=== PATIENT | male | born 1950 | race Caucasian/White ===

== ENCOUNTER 2019-11-27 17:56 | Inpatient (IN) ==
[2019-11-27 20:25] LABS: Adenovirus Not Detected (Not Detect); Bordetella Pertussis Not Detected (Not Detect); Chlamydophila pneumoniae Not Detected (Not Detect); Coronavirus 229E Not Detected (Not Detect); Coronavirus HKU1 Not Detected (Not Detect); Coronavirus NL63 Not Detected (Not Detect); Coronavirus OC43 Not Detected (Not Detect); Human Metapneumovirus Not Detected (Not Detect); Human Rhinovirus/Enterovirus Not Detected (Not Detect); Influenza A Subtype 2009 H1 Not Detected (Not Detect); Influenza B Not Detected (Not Detect); Mycoplasma pneumoniae Not Detected (Not Detect); Parainfluenza Virus 1 Not Detected (Not Detect); Parainfluenza Virus 2 Not Detected (Not Detect); Parainfluenza Virus 3 Not Detected (Not Detect); Parainfluenza Virus 4 Not Detected (Not Detect); Respiratory Syncytial Virus Not Detected (Not Detect); SARS-CoV-2 Not Detected (Not Detect)
[2019-11-27] MEDS ORDERED: Ondansetron 4 MG/2 ML VIAL IVP PRN (21:44)
[2019-11-27] MEDS ORDERED: Naloxone 0.4 MG/ML INJ IVP PRN (21:44)
[2019-11-27 22:43] LABS: Basophils % 0.2 %; Lymphocytes % 8.7 %; Mean Platelet Volume 9.4 fL (9.4-12.4)
[2019-11-27 22:44] LABS: Basophils # 0.1 K/mcL (0.0-0.2); Hematocrit 33.8 % (37.5-50.1); Hemoglobin 10.5 g/dL (12.9-16.9); Immature Granulocytes % 0.9 % (0-4); Lymphocytes # 2.3 K/mcL (0.6-4.6); Mean Corpuscular HGB Conc 31.1 g/dL (31.6-35.5); Mean Corpuscular Hemoglobin 32.6 pg (28.0-33.3); Monocytes # 1.4 K/mcL (0.0-1.3); Monocytes % 5.4 %; Platelet Count 281 K/mcL (140-400); Red Blood Count 3.22 M/mcL (4.19-5.50); Red Cell Distribution Width 16.3 % (11.5-14.5); Segmented Neutrophils % 84.8 %; White Blood Count 26.3 K/mcL (4.3-11.1)
[2019-11-27 22:52] LABS: Neutrophils # 22.3 K/mcL (1.6-8.9)
[2019-11-27] MEDS ORDERED: Vancomycin 1,250 MG/262.5 ML IV.SOLN IVPB ONE (23:00)
[2019-11-27] MEDS: 0.9 % Sodium Chloride 1,000 ML IVC SCH (23:02)
[2019-11-27 23:15] LABS: Anisocytosis 1+ (Not Present); Platelet Estimate Normal (Normal); Toxic Granulation Present (Not Present)
[2019-11-27] MEDS ORDERED: Vancomycin 1 EACH in 0.9 % Sodium Chloride 250 ML IVPB PRN (23:45)
[2019-11-28] MEDS ORDERED: Piperacillin/Tazobactam 3.375 GM in 0.9 % Sodium Chloride Mini Bag 100 ML IVPB SCH
[2019-11-28] MEDS ORDERED: *HR* OxyCODONE/APAP 5/325 TABLET PO PRN (03:33)
[2019-11-28] MEDS ORDERED: *HR* OxyCODONE/APAP 10/325 TABLET PO PRN (03:34)
[2019-11-28] MEDS: Pantoprazole 40 MG VIAL IVP SCH ×2 (05:13→17:29)
[2019-11-28 05:50] LABS: Eosinophils % 0.1 %; Lymphocytes % 7.5 %; Red Cell Distribution Width 16.4 % (11.5-14.5)
[2019-11-28 05:51] LABS: Basophils # 0.1 K/mcL (0.0-0.2); Basophils % 0.2 %; Hematocrit 29.2 % (37.5-50.1); Hemoglobin 9.2 g/dL (12.9-16.9); Immature Granulocytes % 0.8 % (0-4); Lymphocytes # 1.9 K/mcL (0.6-4.6); Mean Corpuscular HGB Conc 31.5 g/dL (31.6-35.5); Mean Corpuscular Hemoglobin 33.1 pg (28.0-33.3); Mean Platelet Volume 9.4 fL (9.4-12.4); Monocytes # 1.6 K/mcL (0.0-1.3); Monocytes % 6.1 %; Platelet Count 232 K/mcL (140-400); Red Blood Count 2.78 M/mcL (4.19-5.50); Segmented Neutrophils % 85.3 %; White Blood Count 25.6 K/mcL (4.3-11.1)
[2019-11-28 05:53] LABS: INR 1.1; Prothrombin Time 12.3 Seconds (9.4-12.1)
[2019-11-28 05:58] LABS: Neutrophils # 21.8 K/mcL (1.6-8.9)
[2019-11-28 06:14] LABS: Albumin/Globulin Ratio 0.9 (1.1-2.2); Bilirubin,Total 0.4 mg/dL (0.3-1.0); Calcium 9.3 mg/dL (8.6-10.3); Globulin 3.4 g/dL (2.4-3.5); Magnesium 2.2 mg/dL (1.6-2.6); Potassium 4.9 mEq/L (3.5-5.1); Total Protein 6.4 g/dL (6.4-8.9); Troponin I 0.07 ng/mL (< 0.04)
[2019-11-28 06:25] LABS: Platelet Estimate Normal (Normal)
[2019-11-28] MEDS: 0.9 % Sodium Chloride 1,000 ML IVC SCH (08:12)
[2019-11-28] MEDS: Aspirin 81 MG TAB.CHEW GTUBE SCH (08:12)
[2019-11-28] MEDS ORDERED: *HR* Propofol 200 MG/20 ML VIAL IVP ONE (11:34)
[2019-11-28] MEDS ORDERED: Lidocaine -MPF 2% 2 ML VIAL ONE (11:35)
[2019-11-28] MEDS: Piperacillin/Tazobactam 3.375 GM in 0.9 % Sodium Chloride Mini Bag 100 ML IVPB SCH (14:05)
[2019-11-28 17:34] LABS: Basophils % 0.2 %; Hemoglobin 8.6 g/dL (12.9-16.9); Immature Granulocytes % 0.7 % (0-4); Lymphocytes # 1.4 K/mcL (0.6-4.6); Mean Corpuscular HGB Conc 30.7 g/dL (31.6-35.5); Mean Corpuscular Hemoglobin 32.1 pg (28.0-33.3); Mean Corpuscular Volume 104.5 fL (83.0-100.0); Mean Platelet Volume 9.6 fL (9.4-12.4); Monocytes # 1.3 K/mcL (0.0-1.3); Monocytes % 5.2 %; Neutrophils # 21.1 K/mcL (1.6-8.9); Platelet Count 213 K/mcL (140-400); Red Blood Count 2.68 M/mcL (4.19-5.50); Red Cell Distribution Width 16.1 % (11.5-14.5); Segmented Neutrophils % 87.9 %
[2019-11-28 17:40] LABS: Basophils # 0.1 K/mcL (0.0-0.2)
[2019-11-29] MEDS: Piperacillin/Tazobactam 3.375 GM in 0.9 % Sodium Chloride Mini Bag 100 ML IVPB SCH (00:11)
[2019-11-29] MEDS: Pantoprazole 40 MG VIAL IVP SCH ×2 (05:23→20:42)
[2019-11-29 05:51] LABS: Basophils % 0.2 %; Mean Platelet Volume 9.6 fL (9.4-12.4)
[2019-11-29 05:52] LABS: Basophils # 0.1 K/mcL (0.0-0.2); Hematocrit 29.8 % (37.5-50.1); Hemoglobin 9.2 g/dL (12.9-16.9); Immature Granulocytes % 0.9 % (0-4); Lymphocytes # 1.5 K/mcL (0.6-4.6); Lymphocytes % 3.8 %; Mean Corpuscular HGB Conc 30.9 g/dL (31.6-35.5); Mean Corpuscular Hemoglobin 32.9 pg (28.0-33.3); Mean Corpuscular Volume 106.4 fL (83.0-100.0); Monocytes # 1.8 K/mcL (0.0-1.3); Monocytes % 4.5 %; Neutrophils # 35.6 K/mcL (1.6-8.9); Platelet Count 281 K/mcL (140-400); Red Cell Distribution Width 16.5 % (11.5-14.5); Segmented Neutrophils % 90.6 %
[2019-11-29 06:02] LABS: White Blood Count 39.3 K/mcL (4.3-11.1)
[2019-11-29 06:04] LABS: Potassium 4.5 mEq/L (3.5-5.1)
[2019-11-29 06:05] LABS: % Iron Saturation 10 % (20-55); Iron 19 mcg/dL (65-175); Transferrin 130 mg/dL (203-362)
[2019-11-29 06:12] LABS: Macrocytosis Present (Not Present); Platelet Estimate Normal (Normal)
[2019-11-29 06:24] LABS: Ferritin > 1500 ng/mL (20-250)
[2019-11-29 06:32] LABS: Folate > 22.3 ng/mL (3.0-16.0); Vitamin B12 1183 pg/mL (250-1100)
[2019-11-29] MEDS: Aspirin 81 MG TAB.CHEW GTUBE SCH (08:00)
[2019-11-29] MEDS ORDERED: polyethylene glycoL 3350 17 GM POWD.PACK GTUBE PRN (08:08)
[2019-11-29] MEDS: Sennosides/Docusate Sodium TABLET GTUBE SCH (09:55)
[2019-11-29] MEDS: Valproic Acid Oral Soln 250 MG/5 ML UDC GTUBE SCH ×3 (09:55→23:57)
[2019-11-29] MEDS: Melatonin 3 MG TABLET GTUBE SCH (09:55)
[2019-11-29 11:06] LABS: Albumin 2.7 g/dL (3.5-5.7); Calcium 8.8 mg/dL (8.6-10.3); Phosphorous 3.8 mg/dL (2.7-4.5); Potassium 4.1 mEq/L (3.5-5.1)
[2019-11-29] MEDS ORDERED: 0.9 % Sodium Chloride 250 ML IVC PRN (11:07)
[2019-11-29] MEDS ORDERED: *HR* Heparin 10,000 UNIT/10 ML VIAL IV PRN (11:07)
[2019-11-29] MEDS ORDERED: 0.9 % Sodium Chloride 1,000 ML PRIME SCH (11:15)
[2019-11-29 11:37] LABS: Bacteria,Urine Few per hpf (None-Few); Bilirubin,Urine Negative (Negative); Blood,Urine Moderate (Negative); Budding Yeast,Urine Few per hpf (None Seen); Clarity,Urine Turbid (Clear); Color,Urine Yellow (Yellow); Glucose,Urine (UA) Normal (Normal); Ketones,Urine Negative (Negative); Leukocyte Esterase,Urine Large (Negative); Mucus,Urine Few per lpf (None-Few); Nitrite,Urine Negative (Negative); PH,Urine 6.5 pH Units (5.0-8.0); Protein,Urine 200 mg/dL (Neg-Trace); RBC,Urine 15-30 per hpf (0-3); Specific Gravity,Urine 1.016 (1.010-1.025); Urobilinogen,Urine Normal (Normal); WBC,Urine TNTC per hpf (0-3)
[2019-11-29] MEDS ORDERED: Colistin (Colistimethate) 300 MG in 0.9 % Sodium Chloride 50 ML IVPB ONE (13:03)
[2019-11-29] MEDS ORDERED: Ferumoxytol 510 MG in 0.9 % Sodium Chloride 100 ML IVPB ONE (14:31)
[2019-11-29 18:25] LABS: Hepatitis B Surface Antibody < 3.10 mIU/mL
[2019-11-29 18:36] LABS: Hepatitis B Surface Antigen Nonreactive (Nonreactive)
[2019-11-30] MEDS: Pantoprazole 40 MG VIAL IVP SCH ×2 (05:01→17:08)
[2019-11-30 06:35] LABS: Basophils # 0.1 K/mcL (0.0-0.2); Basophils % 0.2 %; Eosinophils % 0.1 %; Hematocrit 25.1 % (37.5-50.1); Hemoglobin 7.7 g/dL (12.9-16.9); Immature Granulocytes % 0.7 % (0-4); Lymphocytes % 9.3 %; Mean Corpuscular HGB Conc 30.7 g/dL (31.6-35.5); Mean Corpuscular Hemoglobin 32.1 pg (28.0-33.3); Mean Corpuscular Volume 104.6 fL (83.0-100.0); Mean Platelet Volume 9.2 fL (9.4-12.4); Monocytes # 1.4 K/mcL (0.0-1.3); Monocytes % 6.2 %; Neutrophils # 18.3 K/mcL (1.6-8.9); Platelet Count 208 K/mcL (140-400); Red Cell Distribution Width 16.5 % (11.5-14.5); Segmented Neutrophils % 83.5 %; White Blood Count 21.9 K/mcL (4.3-11.1)
[2019-11-30] MEDS: Melatonin 3 MG TABLET GTUBE SCH (08:45)
[2019-11-30] MEDS: Valproic Acid Oral Soln 250 MG/5 ML UDC GTUBE SCH ×3 (08:45→23:57)
[2019-11-30] MEDS: Sennosides/Docusate Sodium TABLET GTUBE SCH (08:45)
[2019-11-30] MEDS: Aspirin 81 MG TAB.CHEW GTUBE SCH (08:45)
[2019-11-30] MEDS ORDERED: Colistin (Colistimethate) 150 MG VIAL IVPB SCH (09:00)
[2019-11-30] MEDS: Colistin (Colistimethate) 130 MG in 0.9 % Sodium Chloride 50 ML IVPB SCH (12:55)
[2019-11-30] MEDS: ALPRAZolam 0.5 MG TABLET GTUBE PRN (14:25)
[2019-11-30] MEDS: Iron Sucrose Complex 200 MG in 0.9 % Sodium Chloride 100 ML IVPB SCH (14:25)
[2019-11-30 15:59] LABS: Hematocrit 25.7 % (37.5-50.1); Hemoglobin 7.9 g/dL (12.9-16.9)
[2019-11-30] MEDS ORDERED: Piperacillin/Tazobactam 3.375 GM in 0.9 % Sodium Chloride Mini Bag 100 ML IVPB SCH (18:00)
[2019-12-01] MEDS: Pantoprazole 40 MG VIAL IVP SCH ×2 (05:00→18:55)
[2019-12-01 07:02] LABS: Calcium 9.6 mg/dL (8.6-10.3); Potassium 3.9 mEq/L (3.5-5.1)
[2019-12-01] MEDS ORDERED: *HR* Heparin 10,000 UNIT/10 ML VIAL IV PRN (07:44)
[2019-12-01] MEDS ORDERED: 0.9 % Sodium Chloride 250 ML IVC PRN (07:44)
[2019-12-01] MEDS: Valproic Acid Oral Soln 250 MG/5 ML UDC GTUBE SCH ×3 (07:51→23:35)
[2019-12-01] MEDS: Melatonin 3 MG TABLET GTUBE SCH (07:51)
[2019-12-01] MEDS: Sennosides/Docusate Sodium TABLET GTUBE SCH (07:51)
[2019-12-01] MEDS: Iron Sucrose Complex 200 MG in 0.9 % Sodium Chloride 100 ML IVPB SCH (07:51)
[2019-12-01 10:00] LABS: Basophils % 0.2 %; Eosinophils # 0.2 K/mcL (0.0-0.6); Eosinophils % 1.6 %; Hematocrit 25.7 % (37.5-50.1); Immature Granulocytes % 0.7 % (0-4); Lymphocytes # 1.8 K/mcL (0.6-4.6); Mean Corpuscular HGB Conc 31.1 g/dL (31.6-35.5); Mean Corpuscular Hemoglobin 33.8 pg (28.0-33.3); Mean Corpuscular Volume 108.4 fL (83.0-100.0); Mean Platelet Volume 9.3 fL (9.4-12.4); Monocytes # 1.1 K/mcL (0.0-1.3); Monocytes % 7.1 %; Neutrophils # 11.5 K/mcL (1.6-8.9); Platelet Count 193 K/mcL (140-400); Red Blood Count 2.37 M/mcL (4.19-5.50); Red Cell Distribution Width 16.4 % (11.5-14.5); Segmented Neutrophils % 78.4 %; White Blood Count 14.7 K/mcL (4.3-11.1)
[2019-12-01 10:14] LABS: Albumin 2.7 g/dL (3.5-5.7); Calcium 9.5 mg/dL (8.6-10.3); Phosphorous 3.7 mg/dL (2.7-4.5); Potassium 3.8 mEq/L (3.5-5.1)
[2019-12-01] MEDS ORDERED: Haloperidol Lactate 5 MG/ML VIAL IVP ONE (12:42)
[2019-12-01] MEDS: Colistin (Colistimethate) 130 MG in 0.9 % Sodium Chloride 50 ML IVPB SCH (13:04)
[2019-12-01] MEDS: ALPRAZolam 0.5 MG TABLET GTUBE PRN (23:35)
[2019-12-02] MEDS: Pantoprazole 40 MG VIAL IVP SCH ×2 (06:11→18:17)
[2019-12-02 06:24] LABS: Hematocrit 26.3 % (37.5-50.1); Hemoglobin 7.7 g/dL (12.9-16.9); Mean Corpuscular HGB Conc 29.3 g/dL (31.6-35.5); Mean Corpuscular Hemoglobin 31.4 pg (28.0-33.3); Mean Corpuscular Volume 107.3 fL (83.0-100.0); Mean Platelet Volume 9.4 fL (9.4-12.4); Platelet Count 220 K/mcL (140-400); Red Blood Count 2.45 M/mcL (4.19-5.50); Red Cell Distribution Width 16.2 % (11.5-14.5); White Blood Count 14.3 K/mcL (4.3-11.1)
[2019-12-02 06:44] LABS: Calcium 9.4 mg/dL (8.6-10.3); Potassium 3.9 mEq/L (3.5-5.1)
[2019-12-02] MEDS: Iron Sucrose Complex 200 MG in 0.9 % Sodium Chloride 100 ML IVPB SCH (08:06)
[2019-12-02] MEDS: Valproic Acid Oral Soln 250 MG/5 ML UDC GTUBE SCH ×3 (08:06→23:54)
[2019-12-02] MEDS: Sennosides/Docusate Sodium TABLET GTUBE SCH (08:06)
[2019-12-02] MEDS: ALPRAZolam 0.5 MG TABLET GTUBE PRN (10:44)
[2019-12-02] MEDS: Colistin (Colistimethate) 130 MG in 0.9 % Sodium Chloride 50 ML IVPB SCH (12:19)
[2019-12-02] MEDS: metroNIDAZOLE 500 MG TABLET GTUBE SCH ×2 (15:24→21:26)
[2019-12-02] MEDS ORDERED: Haloperidol Lactate 5 MG/ML VIAL IVP ONE (16:18)
[2019-12-02] MEDS: Melatonin 3 MG TABLET GTUBE SCH ×2 (21:26→23:55)
[2019-12-03] MEDS: Pantoprazole 40 MG VIAL IVP SCH ×2 (05:57→18:32)
[2019-12-03] MEDS ORDERED: 0.9 % Sodium Chloride 250 ML IVC PRN (07:20)
[2019-12-03] MEDS ORDERED: *HR* Heparin 10,000 UNIT/10 ML VIAL IV PRN (07:20)
[2019-12-03] MEDS ORDERED: 0.9 % Sodium Chloride 1,000 ML PRIME SCH (07:30)
[2019-12-03] MEDS: metroNIDAZOLE 500 MG TABLET GTUBE SCH (08:35)
[2019-12-03] MEDS: Valproic Acid Oral Soln 250 MG/5 ML UDC GTUBE SCH ×3 (08:35→14:05)
[2019-12-03] MEDS: Sennosides/Docusate Sodium TABLET GTUBE SCH ×2 (08:36→09:20)
[2019-12-03] MEDS: Iron Sucrose Complex 200 MG in 0.9 % Sodium Chloride 100 ML IVPB SCH (08:36)
[2019-12-03] MEDS ORDERED: Haloperidol Lactate 5 MG/ML VIAL IVP ONE (14:10)
[2019-12-03] MEDS: Colistin (Colistimethate) 130 MG in 0.9 % Sodium Chloride 50 ML IVPB SCH (14:27)
[2019-12-03] MEDS ORDERED: MetroNIDAZOLE 500 MG/100 ML 500 MG/100 ML BAG IVPB SCH (16:00)
[2019-12-03] MEDS ORDERED: Meropenem 500 MG in 0.9 % Sodium Chloride Mini Bag 100 ML IVPB SCH ×2 (18:00→19:00)
[2019-12-03] MEDS: Melatonin 3 MG TABLET GTUBE SCH (22:32)
[2019-12-04] MEDS: Pantoprazole 40 MG VIAL IVP SCH ×2 (06:18→17:22)
[2019-12-04] MEDS: Valproic Acid Oral Soln 250 MG/5 ML UDC GTUBE SCH ×3 (06:19→17:22)
[2019-12-04] MEDS: Iron Sucrose Complex 200 MG in 0.9 % Sodium Chloride 100 ML IVPB SCH (08:30)
[2019-12-04] MEDS: Sennosides/Docusate Sodium TABLET GTUBE SCH (11:30)
[2019-12-04 11:56] LABS: Hematocrit 26.4 % (37.5-50.1); Hemoglobin 7.8 g/dL (12.9-16.9); Mean Corpuscular HGB Conc 29.5 g/dL (31.6-35.5); Mean Corpuscular Hemoglobin 32.4 pg (28.0-33.3); Mean Corpuscular Volume 109.5 fL (83.0-100.0); Mean Platelet Volume 9.3 fL (9.4-12.4); Platelet Count 206 K/mcL (140-400); Red Blood Count 2.41 M/mcL (4.19-5.50); White Blood Count 11.6 K/mcL (4.3-11.1)
[2019-12-04 12:05] LABS: Albumin 2.4 g/dL (3.5-5.7); Calcium 9.7 mg/dL (8.6-10.3); Phosphorous 2.5 mg/dL (2.7-4.5)
[2019-12-04 13:01] LABS: Anisocytosis 1+ (Not Present); Neutrophils # 9.4 K/mcL (1.6-8.9)
[2019-12-04 13:02] LABS: Macrocytosis Present (Not Present); Platelet Estimate Normal (Normal); Toxic Granulation Present (Not Present)
[2019-12-04] MEDS: Colistin (Colistimethate) 130 MG in 0.9 % Sodium Chloride 50 ML IVPB SCH (14:33)
[2019-12-04] MEDS: Melatonin 3 MG TABLET GTUBE SCH (21:10)
[2019-12-05] MEDS: Valproic Acid Oral Soln 250 MG/5 ML UDC GTUBE SCH ×4 (01:07→23:27)
[2019-12-05] MEDS: Meropenem 500 MG in 0.9 % Sodium Chloride Mini Bag 100 ML IVPB SCH ×2 (01:08→23:28)
[2019-12-05] MEDS: Pantoprazole 40 MG VIAL IVP SCH ×2 (05:38→17:52)
[2019-12-05] MEDS: Sennosides/Docusate Sodium TABLET GTUBE SCH (07:58)
[2019-12-05] MEDS: Metoclopramide 10 MG/2 ML VIAL IVP SCH ×3 (12:03→23:27)
[2019-12-05] MEDS: Colistin (Colistimethate) 130 MG in 0.9 % Sodium Chloride 50 ML IVPB SCH (12:04)
[2019-12-05] MEDS: Melatonin 3 MG TABLET GTUBE SCH (23:28)
[2019-12-06] MEDS: Metoclopramide 10 MG/2 ML VIAL IVP SCH (05:11)
[2019-12-06] MEDS: Pantoprazole 40 MG VIAL IVP SCH ×2 (05:12→18:05)
[2019-12-06] MEDS ORDERED: 0.9 % Sodium Chloride 250 ML IVC PRN (07:06)
[2019-12-06] MEDS ORDERED: *HR* Heparin 10,000 UNIT/10 ML VIAL IV PRN (07:52)
[2019-12-06] MEDS: Sennosides/Docusate Sodium TABLET GTUBE SCH (08:57)
[2019-12-06] MEDS: Valproic Acid Oral Soln 250 MG/5 ML UDC GTUBE SCH ×2 (08:57→16:04)
[2019-12-06] MEDS ORDERED: Metoclopramide 10 MG/2 ML VIAL IVP SCH (10:35)
[2019-12-06 10:55] LABS: Prothrombin Time 11.6 Seconds (9.4-12.1)
[2019-12-06 10:56] LABS: Hematocrit 29.1 % (37.5-50.1); Hemoglobin 8.9 g/dL (12.9-16.9); Mean Corpuscular HGB Conc 30.6 g/dL (31.6-35.5); Mean Corpuscular Hemoglobin 33.1 pg (28.0-33.3); Mean Corpuscular Volume 108.2 fL (83.0-100.0); Platelet Count 284 K/mcL (140-400); Red Blood Count 2.69 M/mcL (4.19-5.50); Red Cell Distribution Width 16.2 % (11.5-14.5); White Blood Count 16.2 K/mcL (4.3-11.1)
[2019-12-06 11:03] LABS: Albumin 2.8 g/dL (3.5-5.7); Calcium 9.9 mg/dL (8.6-10.3); Phosphorous 2.4 mg/dL (2.7-4.5); Potassium 3.8 mEq/L (3.5-5.1)
[2019-12-06 12:58] LABS: Lymphocytes # 1.3 K/mcL (0.6-4.6); Monocytes # 0.7 K/mcL (0.0-1.3)
[2019-12-06 13:00] LABS: Anisocytosis 1+ (Not Present); Platelet Clumps Few (Not Present); Platelet Estimate Normal (Normal)
[2019-12-06] MEDS: Metoclopramide 20 MG in 0.9 % Sodium Chloride 50 ML IVPB SCH ×2 (13:33→18:08)
[2019-12-06] MEDS: metroNIDAZOLE 500 MG TABLET PO SCH ×3 (13:35→21:27)
[2019-12-06] MEDS: Gentamicin Oint 15 GM TUBE TP SCH ×2 (13:36→21:29)
[2019-12-06] MEDS: Colistin (Colistimethate) 130 MG in 0.9 % Sodium Chloride 50 ML IVPB SCH (14:46)
[2019-12-06] MEDS: Meropenem 500 MG in 0.9 % Sodium Chloride Mini Bag 100 ML IVPB SCH (21:27)
[2019-12-06] MEDS: Melatonin 3 MG TABLET GTUBE SCH (21:27)
[2019-12-07] MEDS: Valproic Acid Oral Soln 250 MG/5 ML UDC GTUBE SCH ×3 (01:08→16:37)
[2019-12-07] MEDS: Metoclopramide 20 MG in 0.9 % Sodium Chloride 50 ML IVPB SCH ×3 (02:42→18:16)
[2019-12-07] MEDS: Pantoprazole 40 MG VIAL IVP SCH ×2 (05:27→16:37)
[2019-12-07] MEDS ORDERED: *HR* Propofol 200 MG/20 ML VIAL IVP ONE (08:36)
[2019-12-07] MEDS ORDERED: *HR* FentaNYL (PF) 100 MCG/2 ML VIAL ONE (08:38)
[2019-12-07] MEDS ORDERED: Lidocaine -MPF 2% 2 ML VIAL ONE (08:39)
[2019-12-07] MEDS ORDERED: *HR* Rocuronium Bromide 50 MG/5 ML VIAL ONE (08:39)
[2019-12-07] MEDS ORDERED: Dexamethasone 4 MG/ML VIAL ONE (08:39)
[2019-12-07] MEDS ORDERED: Ondansetron 4 MG/2 ML VIAL ONE (08:39)
[2019-12-07] MEDS ORDERED: *HR* Succinylcholine 200 MG/10 ML VIAL IVP ONE (08:39)
[2019-12-07] MEDS ORDERED: Lidocaine HCL 4 ML Topical Solution (Laryng-O-Jet Kit Sterile Pak) TP ONE (08:39)
[2019-12-07] MEDS ORDERED: cefOXitin 1,000 MG, Sodium Chloride IRRigation 1,000 ML IR ONE (09:35)
[2019-12-07] MEDS: Gentamicin Oint 15 GM TUBE TP SCH (10:13)
[2019-12-07] MEDS ORDERED: *HR* HYDROmorphone PF 0.5 MG/0.5 ML SYRINGE IVP PRN (10:41)
[2019-12-07] MEDS ORDERED: ceFAZolin 2,000 MG in 0.9 % Sodium Chloride 100 ML IVPB ONE (11:08)
[2019-12-07] MEDS ORDERED: EPHEDrine 50 MG/ML VIAL ONE ×2 (11:27→13:01)
[2019-12-07] MEDS ORDERED: *HR* Phenylephrine 10 MG/ML VIAL ONE (11:30)
[2019-12-07] MEDS ORDERED: *HR* Vasopressin 20 UNIT/ML VIAL ONE (11:41)
[2019-12-07] MEDS ORDERED: 0.9 % Sodium Chloride 500 ML ONE (13:04)
[2019-12-07] MEDS: Colistin (Colistimethate) 130 MG in 0.9 % Sodium Chloride 50 ML IVPB SCH (14:53)
[2019-12-07] MEDS ORDERED: 0.9 % Sodium Chloride 250 ML IVC PRN (15:09)
[2019-12-07] MEDS ORDERED: ALPRAZolam 0.5 MG TABLET GTUBE PRN (15:09)
[2019-12-07] MEDS ORDERED: 0.9 % Sodium Chloride 1,000 ML PRIME SCH (15:09)
[2019-12-07] MEDS ORDERED: Ondansetron 4 MG/2 ML VIAL IVP PRN (15:09)
[2019-12-07] MEDS ORDERED: Naloxone 0.4 MG/ML INJ IVP PRN (15:09)
[2019-12-07] MEDS ORDERED: cefOXitin 1,000 MG, Sodium Chloride IRRigation 1,000 ML IVP SCH (16:00)
[2019-12-07] MEDS: Melatonin 3 MG TABLET GTUBE SCH (21:00)
[2019-12-07] MEDS: Meropenem 500 MG in 0.9 % Sodium Chloride Mini Bag 100 ML IVPB SCH (21:03)
[2019-12-08] MEDS: Gentamicin Oint 15 GM TUBE TP SCH ×3 (00:14→20:37)
[2019-12-08] MEDS: Metoclopramide 20 MG in 0.9 % Sodium Chloride 50 ML IVPB SCH ×2 (01:35→12:49)
[2019-12-08] MEDS: Valproic Acid Oral Soln 250 MG/5 ML UDC GTUBE SCH ×3 (01:35→16:51)
[2019-12-08 03:11] LABS: Hematocrit 27.9 % (37.5-50.1); Hemoglobin 8.2 g/dL (12.9-16.9); Mean Corpuscular HGB Conc 29.4 g/dL (31.6-35.5); Mean Corpuscular Hemoglobin 31.8 pg (28.0-33.3); Mean Corpuscular Volume 108.1 fL (83.0-100.0); Platelet Count 221 K/mcL (140-400); Red Blood Count 2.58 M/mcL (4.19-5.50); White Blood Count 16.7 K/mcL (4.3-11.1)
[2019-12-08 03:12] LABS: Basophils # 0.1 K/mcL (0.0-0.2); Basophils % 0.4 %; Immature Granulocytes % 4.6 % (0-4); Lymphocytes # 1.1 K/mcL (0.6-4.6); Lymphocytes % 6.7 %; Mean Platelet Volume 9.5 fL (9.4-12.4); Monocytes # 0.8 K/mcL (0.0-1.3); Monocytes % 4.6 %; Segmented Neutrophils % 83.7 %
[2019-12-08 03:33] LABS: Magnesium 1.8 mg/dL (1.6-2.6)
[2019-12-08] MEDS: Pantoprazole 40 MG VIAL IVP SCH ×2 (05:41→16:51)
[2019-12-08] MEDS ORDERED: 0.9 % Sodium Chloride 250 ML IVC PRN (07:19)
[2019-12-08] MEDS: Aspirin 81 MG TAB.CHEW GTUBE SCH (08:17)
[2019-12-08 10:16] LABS: Albumin 2.5 g/dL (3.5-5.7); Calcium 9.7 mg/dL (8.6-10.3); Phosphorous 5.1 mg/dL (2.7-4.5); Potassium 4.4 mEq/L (3.5-5.1)
[2019-12-08] MEDS ORDERED: *HR* Heparin 10,000 UNIT/10 ML VIAL IV PRN (11:26)
[2019-12-08] MEDS: Colistin (Colistimethate) 130 MG in 0.9 % Sodium Chloride 50 ML IVPB SCH (13:22)
[2019-12-08] MEDS: Meropenem 500 MG in 0.9 % Sodium Chloride Mini Bag 100 ML IVPB SCH (20:20)
[2019-12-08] MEDS: Melatonin 3 MG TABLET GTUBE SCH (20:21)
[2019-12-09] MEDS: Valproic Acid Oral Soln 250 MG/5 ML UDC GTUBE SCH ×4 (02:06→23:57)
[2019-12-09 05:20] LABS: Basophils # 0.1 K/mcL (0.0-0.2); Basophils % 0.5 %; Eosinophils % 0.3 %; Hematocrit 26.5 % (37.5-50.1); Immature Granulocytes % 4.1 % (0-4); Lymphocytes # 2.4 K/mcL (0.6-4.6); Lymphocytes % 18.5 %; Mean Corpuscular HGB Conc 30.2 g/dL (31.6-35.5); Mean Corpuscular Hemoglobin 32.9 pg (28.0-33.3); Mean Corpuscular Volume 109.1 fL (83.0-100.0); Mean Platelet Volume 9.4 fL (9.4-12.4); Monocytes # 1.1 K/mcL (0.0-1.3); Monocytes % 8.7 %; Neutrophils # 8.9 K/mcL (1.6-8.9); Platelet Count 233 K/mcL (140-400); Red Blood Count 2.43 M/mcL (4.19-5.50); Red Cell Distribution Width 16.1 % (11.5-14.5); Segmented Neutrophils % 67.9 %; White Blood Count 13.2 K/mcL (4.3-11.1)
[2019-12-09] MEDS: Pantoprazole 40 MG VIAL IVP SCH ×2 (05:49→16:22)
[2019-12-09 07:06] LABS: Calcium 9.5 mg/dL (8.6-10.3); Magnesium 1.8 mg/dL (1.6-2.6); Potassium 3.5 mEq/L (3.5-5.1)
[2019-12-09] MEDS: Aspirin 81 MG TAB.CHEW GTUBE SCH (08:24)
[2019-12-09] MEDS: Gentamicin Oint 15 GM TUBE TP SCH ×2 (08:25→21:47)
[2019-12-09] MEDS: Colistin (Colistimethate) 130 MG in 0.9 % Sodium Chloride 50 ML IVPB SCH (14:07)
[2019-12-09] MEDS: Melatonin 3 MG TABLET GTUBE SCH (21:46)
[2019-12-09] MEDS: Meropenem 500 MG in 0.9 % Sodium Chloride Mini Bag 100 ML IVPB SCH (21:50)
[2019-12-10 04:37] LABS: Basophils % 0.3 %; Eosinophils # 0.1 K/mcL (0.0-0.6); Eosinophils % 0.9 %; Hematocrit 24.9 % (37.5-50.1); Hemoglobin 7.5 g/dL (12.9-16.9); Immature Granulocytes % 2.5 % (0-4); Lymphocytes # 1.8 K/mcL (0.6-4.6); Lymphocytes % 12.9 %; Mean Corpuscular HGB Conc 30.1 g/dL (31.6-35.5); Mean Corpuscular Hemoglobin 32.2 pg (28.0-33.3); Mean Corpuscular Volume 106.9 fL (83.0-100.0); Monocytes # 0.9 K/mcL (0.0-1.3); Monocytes % 6.7 %; Neutrophils # 10.7 K/mcL (1.6-8.9); Platelet Count 211 K/mcL (140-400); Red Blood Count 2.33 M/mcL (4.19-5.50); Red Cell Distribution Width 15.9 % (11.5-14.5); Segmented Neutrophils % 76.7 %
[2019-12-10 04:56] LABS: Calcium 10.1 mg/dL (8.6-10.3); Potassium 3.4 mEq/L (3.5-5.1)
[2019-12-10] MEDS: Pantoprazole 40 MG VIAL IVP SCH ×2 (06:09→16:28)
[2019-12-10] MEDS ORDERED: 0.9 % Sodium Chloride 250 ML IVC PRN (06:21)
[2019-12-10] MEDS: Aspirin 81 MG TAB.CHEW GTUBE SCH (09:20)
[2019-12-10] MEDS: Valproic Acid Oral Soln 250 MG/5 ML UDC GTUBE SCH ×2 (09:20→16:28)
[2019-12-10] MEDS: Gentamicin Oint 15 GM TUBE TP SCH ×2 (09:45→21:35)
[2019-12-10 10:34] LABS: Albumin 2.6 g/dL (3.5-5.7)
[2019-12-10] MEDS ORDERED: *HR* Heparin 10,000 UNIT/10 ML VIAL ONE (10:59)
[2019-12-10] MEDS: Colistin (Colistimethate) 130 MG in 0.9 % Sodium Chloride 50 ML IVPB SCH (12:27)
[2019-12-10] MEDS: Melatonin 3 MG TABLET GTUBE SCH (19:59)
[2019-12-10] MEDS: Meropenem 500 MG in 0.9 % Sodium Chloride Mini Bag 100 ML IVPB SCH (21:22)
[2019-12-11] MEDS: Valproic Acid Oral Soln 250 MG/5 ML UDC GTUBE SCH ×2 (00:11→09:03)
[2019-12-11] MEDS: Pantoprazole 40 MG VIAL IVP SCH (06:14)
[2019-12-11 06:29] LABS: Basophils % 0.3 %; Eosinophils # 0.2 K/mcL (0.0-0.6); Eosinophils % 1.2 %; Hematocrit 26.7 % (37.5-50.1); Hemoglobin 7.9 g/dL (12.9-16.9); Immature Granulocytes % 2.2 % (0-4); Lymphocytes # 2.1 K/mcL (0.6-4.6); Lymphocytes % 14.3 %; Mean Corpuscular HGB Conc 29.6 g/dL (31.6-35.5); Mean Corpuscular Hemoglobin 32.1 pg (28.0-33.3); Mean Corpuscular Volume 108.5 fL (83.0-100.0); Mean Platelet Volume 9.3 fL (9.4-12.4); Monocytes # 0.9 K/mcL (0.0-1.3); Monocytes % 6.2 %; Platelet Count 201 K/mcL (140-400); Red Blood Count 2.46 M/mcL (4.19-5.50); Red Cell Distribution Width 16.1 % (11.5-14.5); Segmented Neutrophils % 75.8 %; White Blood Count 14.6 K/mcL (4.3-11.1)
[2019-12-11 06:49] LABS: Calcium 9.4 mg/dL (8.6-10.3); Potassium 3.4 mEq/L (3.5-5.1)
[2019-12-11 08:40] VITALS: BP 95/58
[2019-12-11] MEDS: Gentamicin Oint 15 GM TUBE TP SCH (09:03)
[2019-12-11] MEDS: Aspirin 81 MG TAB.CHEW GTUBE SCH (09:03)
== END 2019-12-11 10:35 | DRG 981 ==
LOC: CDU → 2ANU → SUATTDRO 11-28 12:01
PROVIDERS: ADMIT Internal Medicine; ATTEND Internal Medicine
PROC: ENDOEBX (2019-11-28 08:30)

== ENCOUNTER 2019-12-20 16:23 | Inpatient (IN) ==
[2019-12-20] MEDS ORDERED: *HR* FentaNYL (PF) 100 MCG/2 ML VIAL IVP ONE (16:51)
[2019-12-20 17:26] LABS: Bilirubin,Urine Small (Negative); Blood,Urine Small (Negative); Color,Urine Yellow (Yellow); Glucose,Urine (UA) Normal (Normal); Ketones,Urine Trace mg/dL (Negative); Leukocyte Esterase,Urine Large (Negative); Nitrite,Urine Negative (Negative); PH,Urine 7.5 pH Units (5.0-8.0); Protein,Urine >=300 mg/dL (Neg-Trace); Specific Gravity,Urine >= 1.030 (1.010-1.025); Urobilinogen,Urine Normal (Normal)
[2019-12-20 17:28] LABS: Clarity,Urine Hazy (Clear)
[2019-12-20 17:47] LABS: Calcium Oxalate Crystals,Urine Present
[2019-12-20 17:48] LABS: WBC,Urine 50-100 per hpf (0-3)
[2019-12-20 17:49] LABS: Amorphous Sediment,Urine Moderate per hpf (None-Few); RBC,Urine 0-3 per hpf (0-3)
[2019-12-20 17:56] LABS: Basophils # 0.1 K/mcL (0.0-0.2); Basophils % 0.4 %; Eosinophils # 0.1 K/mcL (0.0-0.6); Eosinophils % 0.7 %; Hematocrit 25.6 % (37.5-50.1); Hemoglobin 7.6 g/dL (12.9-16.9); Immature Granulocytes % 0.9 % (0-4); Lymphocytes # 2.3 K/mcL (0.6-4.6); Lymphocytes % 13.2 %; Mean Corpuscular HGB Conc 29.7 g/dL (31.6-35.5); Mean Corpuscular Hemoglobin 31.8 pg (28.0-33.3); Mean Corpuscular Volume 107.1 fL (83.0-100.0); Mean Platelet Volume 9.4 fL (9.4-12.4); Monocytes # 1.4 K/mcL (0.0-1.3); Neutrophils # 13.5 K/mcL (1.6-8.9); Platelet Count 319 K/mcL (140-400); Red Blood Count 2.39 M/mcL (4.19-5.50); Red Cell Distribution Width 14.8 % (11.5-14.5); Segmented Neutrophils % 76.8 %; White Blood Count 17.6 K/mcL (4.3-11.1)
[2019-12-20 18:26] LABS: Albumin 2.6 g/dL (3.5-5.7); Albumin/Globulin Ratio 0.8 (1.1-2.2); Bilirubin,Total 0.4 mg/dL (0.3-1.0); Calcium 9.7 mg/dL (8.6-10.3); Globulin 3.3 g/dL (2.4-3.5); Potassium 3.6 mEq/L (3.5-5.1); Total Protein 5.9 g/dL (6.4-8.9); Troponin I 0.1 ng/mL (< 0.04)
[2019-12-20] MEDS ORDERED: cefTRIAXone 1,000 MG in 0.9 % Sodium Chloride Mini Bag 100 ML IVPB ONE (18:28)
[2019-12-20] MEDS ORDERED: 0.9 % Sodium Chloride 1,000 ML IVC SCH (19:00)
[2019-12-20] MEDS ORDERED: Aspirin 81 MG TAB.CHEW GTUBE ONE (19:56)
[2019-12-20] MEDS ORDERED: Naloxone 0.4 MG/ML INJ IVP PRN (21:20)
[2019-12-20] MEDS ORDERED: Acetaminophen 325 MG TABLET PO PRN (21:20)
[2019-12-20] MEDS ORDERED: GuaiFENesin Liq 200 MG/10 ML UDC GTUBE PRN (21:23)
[2019-12-20] MEDS ORDERED: Meropenem 500 MG VIAL IVPB SCH (22:00)
[2019-12-20] MEDS: 0.9 % Sodium Chloride 1,000 ML IVC SCH (23:10)
[2019-12-20] MEDS: Valproic Acid Oral Soln 250 MG/5 ML UDC GTUBE SCH (23:10)
[2019-12-20] MEDS: ALPRAZolam 0.5 MG TABLET GTUBE SCH (23:10)
[2019-12-20] MEDS: Meropenem 500 MG in 0.9 % Sodium Chloride Mini Bag 100 ML IVPB SCH (23:11)
[2019-12-21] MEDS ORDERED: Ipratropium/Albuterol Neb 3 ML AER PRN
[2019-12-21] MEDS ORDERED: D5 IVPB SCH ×2 (01:00→02:00)
[2019-12-21] MEDS ORDERED: WATER IVPB SCH ×2 (01:00→02:00)
[2019-12-21] MEDS ORDERED: COLISTIN IVPB SCH ×2 (01:00→02:00)
[2019-12-21] MEDS: Valproic Acid Oral Soln 250 MG/5 ML UDC GTUBE SCH ×3 (04:45→20:28)
[2019-12-21] MEDS ORDERED: Vancomycin 1,500 MG/265 ML IV.SOLN IVPB ONE (06:00)
[2019-12-21 06:40] LABS: INR 1.1; Prothrombin Time 12.4 Seconds (9.4-12.1)
[2019-12-21 06:41] LABS: Hematocrit 21.5 % (37.5-50.1); Hemoglobin 6.5 g/dL (12.9-16.9); Mean Corpuscular HGB Conc 30.2 g/dL (31.6-35.5); Mean Corpuscular Hemoglobin 32.7 pg (28.0-33.3); Mean Platelet Volume 9.7 fL (9.4-12.4); Platelet Count 243 K/mcL (140-400); Red Blood Count 1.99 M/mcL (4.19-5.50); Red Cell Distribution Width 14.6 % (11.5-14.5); Segmented Neutrophils % 67.4 %; White Blood Count 9.4 K/mcL (4.3-11.1)
[2019-12-21 06:42] LABS: Basophils # 0.1 K/mcL (0.0-0.2); Basophils % 0.5 %; Eosinophils # 0.2 K/mcL (0.0-0.6); Immature Granulocytes % 0.7 % (0-4); Lymphocytes % 20.8 %; Monocytes # 0.8 K/mcL (0.0-1.3); Monocytes % 8.6 %; Neutrophils # 6.4 K/mcL (1.6-8.9)
[2019-12-21 07:00] LABS: Albumin 2.4 g/dL (3.5-5.7); Albumin/Globulin Ratio 0.8 (1.1-2.2); Bilirubin,Total 0.3 mg/dL (0.3-1.0); Calcium 8.9 mg/dL (8.6-10.3); Globulin 3.1 g/dL (2.4-3.5); Magnesium 1.8 mg/dL (1.6-2.6); Phosphorous 2.7 mg/dL (2.7-4.5); Potassium 3.5 mEq/L (3.5-5.1); Total Protein 5.5 g/dL (6.4-8.9)
[2019-12-21] MEDS: Zinc Sulfate 220 MG CAPSULE GTUBE SCH (07:57)
[2019-12-21] MEDS: ALPRAZolam 0.5 MG TABLET GTUBE SCH ×4 (07:57→20:28)
[2019-12-21] MEDS: Pantoprazole 40 MG VIAL IVP SCH ×2 (11:10→16:44)
[2019-12-21] MEDS: 0.9 % Sodium Chloride 1,000 ML IVC SCH (11:16)
[2019-12-21] MEDS ORDERED: 0.9 % Sodium Chloride 250 ML ONE ×3 (12:32→16:01)
[2019-12-21] MEDS ORDERED: Perflutren Lipid Microsphere 1.3 ML in 0.9 % Sodium Chloride 8.7 ML IVP PRN (12:33)
[2019-12-21] MEDS: *HR* HYDROcodone/Acet 5/325 mg TABLET GTUBE PRN (16:44)
[2019-12-21 18:41] LABS: Adenovirus Not Detected (Not Detect); Bordetella Pertussis Not Detected (Not Detect); Chlamydophila pneumoniae Not Detected (Not Detect); Coronavirus 229E Not Detected (Not Detect); Coronavirus HKU1 Not Detected (Not Detect); Coronavirus NL63 Not Detected (Not Detect); Coronavirus OC43 Not Detected (Not Detect); Human Metapneumovirus Not Detected (Not Detect); Human Rhinovirus/Enterovirus Not Detected (Not Detect); Influenza A Subtype 2009 H1 Not Detected (Not Detect); Influenza B Not Detected (Not Detect); Mycoplasma pneumoniae Not Detected (Not Detect); Parainfluenza Virus 1 Not Detected (Not Detect); Parainfluenza Virus 2 Not Detected (Not Detect); Parainfluenza Virus 3 Not Detected (Not Detect); Parainfluenza Virus 4 Not Detected (Not Detect); Respiratory Syncytial Virus Not Detected (Not Detect)
[2019-12-21] MEDS: Melatonin 3 MG TABLET GTUBE SCH (20:28)
[2019-12-21] MEDS: *HR* Promethazine 25 MG/ML VIAL IVP PRN (20:57)
[2019-12-21] MEDS: Meropenem 500 MG in 0.9 % Sodium Chloride Mini Bag 100 ML IVPB SCH (23:03)
[2019-12-22] MEDS: Valproic Acid Oral Soln 250 MG/5 ML UDC GTUBE SCH ×3 (06:29→21:56)
[2019-12-22] MEDS: Pantoprazole 40 MG VIAL IVP SCH ×2 (06:29→17:24)
[2019-12-22] MEDS ORDERED: 0.9 % Sodium Chloride 2,000 ML ONE (06:35)
[2019-12-22 06:56] LABS: Basophils % 0.4 %; Eosinophils # 0.2 K/mcL (0.0-0.6); Eosinophils % 2.2 %; Hematocrit 28.5 % (37.5-50.1); Immature Granulocytes % 0.7 % (0-4); Lymphocytes # 1.3 K/mcL (0.6-4.6); Lymphocytes % 13.8 %; Mean Corpuscular HGB Conc 29.8 g/dL (31.6-35.5); Mean Corpuscular Hemoglobin 31.4 pg (28.0-33.3); Mean Corpuscular Volume 105.2 fL (83.0-100.0); Mean Platelet Volume 9.4 fL (9.4-12.4); Monocytes # 0.7 K/mcL (0.0-1.3); Monocytes % 7.5 %; Neutrophils # 7.3 K/mcL (1.6-8.9); Platelet Count 240 K/mcL (140-400); Red Blood Count 2.71 M/mcL (4.19-5.50); Red Cell Distribution Width 15.7 % (11.5-14.5); Segmented Neutrophils % 75.4 %; White Blood Count 9.6 K/mcL (4.3-11.1)
[2019-12-22 07:00] LABS: Hemoglobin 8.5 g/dL (12.9-16.9)
[2019-12-22 07:17] LABS: Calcium 9.1 mg/dL (8.6-10.3); Magnesium 1.6 mg/dL (1.6-2.6); Phosphorous 3.5 mg/dL (2.7-4.5); Potassium 3.4 mEq/L (3.5-5.1)
[2019-12-22] MEDS ORDERED: *HR* Heparin 10,000 UNIT/10 ML VIAL IV PRN (07:44)
[2019-12-22] MEDS ORDERED: 0.9 % Sodium Chloride 250 ML IVC PRN (07:44)
[2019-12-22] MEDS ORDERED: 0.9 % Sodium Chloride 1,000 ML PRIME SCH (07:45)
[2019-12-22] MEDS: Zinc Sulfate 220 MG CAPSULE GTUBE SCH (08:16)
[2019-12-22] MEDS: ALPRAZolam 0.5 MG TABLET GTUBE SCH ×4 (08:16→18:43)
[2019-12-22] MEDS: *HR* HYDROcodone/Acet 5/325 mg TABLET GTUBE PRN ×2 (11:04→18:43)
[2019-12-22] MEDS: MethylPREDNISolone 40 MG/ML VIAL IVP SCH (17:24)
[2019-12-22] MEDS: D5 IVPB SCH (17:25)
[2019-12-22] MEDS: WATER IVPB SCH (17:25)
[2019-12-22] MEDS: COLISTIN IVPB SCH (17:25)
[2019-12-22] MEDS: 0.9 % Sodium Chloride 1,000 ML IVC SCH (20:00)
[2019-12-22] MEDS: Melatonin 3 MG TABLET GTUBE SCH (21:56)
[2019-12-22] MEDS: Meropenem 500 MG in 0.9 % Sodium Chloride Mini Bag 100 ML IVPB SCH (22:53)
[2019-12-23] MEDS: MethylPREDNISolone 40 MG/ML VIAL IVP SCH ×3 (00:11→15:03)
[2019-12-23 03:44] LABS: Basophils % 0.3 %; Hemoglobin 8.9 g/dL (12.9-16.9); Immature Granulocytes % 0.7 % (0-4); Lymphocytes # 0.5 K/mcL (0.6-4.6); Lymphocytes % 7.6 %; Mean Corpuscular HGB Conc 30.7 g/dL (31.6-35.5); Mean Corpuscular Hemoglobin 31.6 pg (28.0-33.3); Mean Corpuscular Volume 102.8 fL (83.0-100.0); Mean Platelet Volume 9.4 fL (9.4-12.4); Monocytes # 0.1 K/mcL (0.0-1.3); Monocytes % 0.7 %; Neutrophils # 6.4 K/mcL (1.6-8.9); Platelet Count 217 K/mcL (140-400); Red Blood Count 2.82 M/mcL (4.19-5.50); Red Cell Distribution Width 14.5 % (11.5-14.5); Segmented Neutrophils % 90.7 %; White Blood Count 7.1 K/mcL (4.3-11.1)
[2019-12-23 03:59] LABS: Calcium 10.1 mg/dL (8.6-10.3); Magnesium 1.7 mg/dL (1.6-2.6); Phosphorous 4.4 mg/dL (2.7-4.5); Potassium 3.8 mEq/L (3.5-5.1)
[2019-12-23] MEDS: Pantoprazole 40 MG VIAL IVP SCH ×2 (05:57→18:39)
[2019-12-23] MEDS ORDERED: *HR* Heparin 10,000 UNIT/10 ML VIAL IV PRN (07:20)
[2019-12-23] MEDS ORDERED: 0.9 % Sodium Chloride 250 ML IVC PRN (07:20)
[2019-12-23] MEDS ORDERED: 0.9 % Sodium Chloride 1,000 ML PRIME SCH (07:30)
[2019-12-23] MEDS ORDERED: Lidocaine -MPF 2% 2 ML VIAL ONE (08:28)
[2019-12-23] MEDS: Valproic Acid Oral Soln 250 MG/5 ML UDC GTUBE SCH ×3 (15:01→20:47)
[2019-12-23] MEDS: ALPRAZolam 0.5 MG TABLET GTUBE SCH ×4 (15:01→20:47)
[2019-12-23] MEDS: Zinc Sulfate 220 MG CAPSULE GTUBE SCH (15:02)
[2019-12-23] MEDS: *HR* Promethazine 25 MG/ML VIAL IVP PRN (15:04)
[2019-12-23] MEDS: *HR* HYDROcodone/Acet 5/325 mg TABLET GTUBE PRN (15:04)
[2019-12-23 16:36] LABS: Source of Body Fluid LLL BAL; Source of Body Fluid RLL BAL
[2019-12-23 18:22] LABS: Appearance of Body Fluid Cloudy (Clear); Volume of Body Fluid 5 mL
[2019-12-23 18:23] LABS: Appearance of Body Fluid Cloudy (Clear); Volume of Body Fluid 16 mL
[2019-12-23] MEDS: WATER IVPB SCH (18:39)
[2019-12-23] MEDS: COLISTIN IVPB SCH (18:39)
[2019-12-23] MEDS: D5 IVPB SCH (18:39)
[2019-12-23] MEDS: Melatonin 3 MG TABLET GTUBE SCH (20:47)
[2019-12-24] MEDS: MethylPREDNISolone 40 MG/ML VIAL IVP SCH ×4 (00:06→23:23)
[2019-12-24] MEDS: Meropenem 500 MG in 0.9 % Sodium Chloride Mini Bag 100 ML IVPB SCH ×2 (00:07→23:22)
[2019-12-24 03:21] LABS: Basophils % 0.2 %; Eosinophils % 0.1 %; Immature Granulocytes % 0.7 % (0-4); Lymphocytes # 0.8 K/mcL (0.6-4.6); Lymphocytes % 7.6 %; Mean Corpuscular Hemoglobin 31.4 pg (28.0-33.3); Mean Platelet Volume 10.1 fL (9.4-12.4); Monocytes # 0.3 K/mcL (0.0-1.3); Nucleated Red Blood Cells 0.2 /100 WBC (0); Platelet Count 161 K/mcL (140-400); Red Blood Count 2.87 M/mcL (4.19-5.50); Red Cell Distribution Width 14.7 % (11.5-14.5); Segmented Neutrophils % 88.4 %; White Blood Count 10.1 K/mcL (4.3-11.1)
[2019-12-24 03:43] LABS: Calcium 9.1 mg/dL (8.6-10.3); Magnesium 1.7 mg/dL (1.6-2.6); Phosphorous 2.3 mg/dL (2.7-4.5); Potassium 3.3 mEq/L (3.5-5.1)
[2019-12-24] MEDS: Pantoprazole 40 MG VIAL IVP SCH ×3 (05:24→23:22)
[2019-12-24] MEDS: Valproic Acid Oral Soln 250 MG/5 ML UDC GTUBE SCH ×3 (05:24→20:49)
[2019-12-24] MEDS ORDERED: *HR* Heparin 10,000 UNIT/10 ML VIAL IV PRN (07:24)
[2019-12-24] MEDS ORDERED: 0.9 % Sodium Chloride 250 ML IVC PRN (07:24)
[2019-12-24] MEDS ORDERED: 0.9 % Sodium Chloride 1,000 ML PRIME SCH (07:30)
[2019-12-24] MEDS: ALPRAZolam 0.5 MG TABLET GTUBE SCH ×4 (08:07→20:49)
[2019-12-24] MEDS: *HR* HYDROcodone/Acet 5/325 mg TABLET GTUBE PRN ×2 (08:07→16:17)
[2019-12-24] MEDS: Zinc Sulfate 220 MG CAPSULE GTUBE SCH (08:08)
[2019-12-24] MEDS ORDERED: *HR* HYDROmorphone (PF) 1 MG/ML SYRINGE IVP ONE (10:30)
[2019-12-24] MEDS: WATER IVPB SCH ×2 (18:29→23:22)
[2019-12-24] MEDS: D5 IVPB SCH ×2 (18:29→23:22)
[2019-12-24] MEDS: COLISTIN IVPB SCH ×2 (18:29→23:22)
[2019-12-24] MEDS: Melatonin 3 MG TABLET GTUBE SCH (20:49)
[2019-12-25] MEDS: Pantoprazole 40 MG VIAL IVP SCH ×3 (05:28→17:31)
[2019-12-25] MEDS: Valproic Acid Oral Soln 250 MG/5 ML UDC GTUBE SCH ×3 (05:28→20:09)
[2019-12-25] MEDS: ALPRAZolam 0.5 MG TABLET GTUBE SCH ×4 (08:25→20:09)
[2019-12-25] MEDS: Zinc Sulfate 220 MG CAPSULE GTUBE SCH (08:25)
[2019-12-25] MEDS: MethylPREDNISolone 40 MG/ML VIAL IVP SCH ×4 (08:30→23:22)
[2019-12-25 14:43] LABS: Basophils % 0.1 %; Hematocrit 30.5 % (37.5-50.1); Hemoglobin 9.4 g/dL (12.9-16.9); Immature Granulocytes % 1.9 % (0-4); Lymphocytes # 0.9 K/mcL (0.6-4.6); Lymphocytes % 9.7 %; Mean Corpuscular HGB Conc 30.8 g/dL (31.6-35.5); Mean Corpuscular Hemoglobin 31.3 pg (28.0-33.3); Mean Platelet Volume 9.3 fL (9.4-12.4); Monocytes # 0.2 K/mcL (0.0-1.3); Monocytes % 2.4 %; Neutrophils # 7.9 K/mcL (1.6-8.9); Platelet Count 219 K/mcL (140-400); Red Cell Distribution Width 13.8 % (11.5-14.5); Segmented Neutrophils % 85.9 %; White Blood Count 9.2 K/mcL (4.3-11.1)
[2019-12-25 14:45] LABS: Mean Corpuscular Volume 101.7 fL (83.0-100.0)
[2019-12-25 14:53] LABS: Calcium 9.7 mg/dL (8.6-10.3); Magnesium 1.8 mg/dL (1.6-2.6); Phosphorous 1.8 mg/dL (2.7-4.5); Potassium 3.9 mEq/L (3.5-5.1)
[2019-12-25] MEDS: *HR* HYDROcodone/Acet 5/325 mg TABLET GTUBE PRN (15:57)
[2019-12-25] MEDS: COLISTIN IVPB SCH (17:30)
[2019-12-25] MEDS: WATER IVPB SCH (17:30)
[2019-12-25] MEDS: D5 IVPB SCH (17:30)
[2019-12-25] MEDS: Melatonin 3 MG TABLET GTUBE SCH (20:09)
[2019-12-25] MEDS: *HR* Promethazine 25 MG/ML VIAL IVP PRN (20:09)
[2019-12-25] MEDS: Meropenem 500 MG in 0.9 % Sodium Chloride Mini Bag 100 ML IVPB SCH (23:22)
[2019-12-26 02:22] LABS: Basophils % 0.2 %; Hematocrit 28.1 % (37.5-50.1); Hemoglobin 8.7 g/dL (12.9-16.9); Immature Granulocytes % 1.8 % (0-4); Lymphocytes % 11.5 %; Mean Corpuscular Hemoglobin 31.1 pg (28.0-33.3); Mean Corpuscular Volume 100.4 fL (83.0-100.0); Mean Platelet Volume 9.7 fL (9.4-12.4); Monocytes # 0.2 K/mcL (0.0-1.3); Monocytes % 2.5 %; Neutrophils # 7.6 K/mcL (1.6-8.9); Platelet Count 196 K/mcL (140-400); Red Cell Distribution Width 13.7 % (11.5-14.5); White Blood Count 9.1 K/mcL (4.3-11.1)
[2019-12-26 02:43] LABS: Calcium 9.5 mg/dL (8.6-10.3); Magnesium 1.8 mg/dL (1.6-2.6); Phosphorous 2.3 mg/dL (2.7-4.5); Potassium 3.8 mEq/L (3.5-5.1)
[2019-12-26] MEDS: *HR* HYDROcodone/Acet 5/325 mg TABLET GTUBE PRN ×3 (04:05→20:43)
[2019-12-26] MEDS: Valproic Acid Oral Soln 250 MG/5 ML UDC GTUBE SCH ×3 (04:05→20:43)
[2019-12-26] MEDS: ALPRAZolam 0.5 MG TABLET GTUBE SCH ×4 (06:44→20:43)
[2019-12-26] MEDS: Pantoprazole 40 MG VIAL IVP SCH ×2 (06:44→17:15)
[2019-12-26] MEDS: Zinc Sulfate 220 MG CAPSULE GTUBE SCH (07:50)
[2019-12-26] MEDS: MethylPREDNISolone 40 MG/ML VIAL IVP SCH ×2 (07:50→15:21)
[2019-12-26] MEDS ORDERED: Morphine Sulfate 2 MG/ML SYRINGE IVP ONE (15:12)
[2019-12-26] MEDS: COLISTIN IVPB SCH (17:15)
[2019-12-26] MEDS: D5 IVPB SCH (17:15)
[2019-12-26] MEDS: WATER IVPB SCH (17:15)
[2019-12-26] MEDS: Melatonin 3 MG TABLET GTUBE SCH (20:43)
[2019-12-27] MEDS: Meropenem 500 MG in 0.9 % Sodium Chloride Mini Bag 100 ML IVPB SCH ×2 (00:22→22:58)
[2019-12-27] MEDS: MethylPREDNISolone 40 MG/ML VIAL IVP SCH ×3 (00:23→16:29)
[2019-12-27 06:10] LABS: Basophils % 0.2 %; Hematocrit 26.9 % (37.5-50.1); Hemoglobin 8.7 g/dL (12.9-16.9); Immature Granulocytes % 2.1 % (0-4); Lymphocytes # 1.8 K/mcL (0.6-4.6); Mean Corpuscular HGB Conc 32.3 g/dL (31.6-35.5); Mean Corpuscular Hemoglobin 32.2 pg (28.0-33.3); Mean Corpuscular Volume 99.6 fL (83.0-100.0); Mean Platelet Volume 9.5 fL (9.4-12.4); Monocytes # 0.8 K/mcL (0.0-1.3); Monocytes % 6.6 %; Neutrophils # 9.7 K/mcL (1.6-8.9); Platelet Count 216 K/mcL (140-400); Red Cell Distribution Width 13.6 % (11.5-14.5); Segmented Neutrophils % 77.1 %; White Blood Count 12.6 K/mcL (4.3-11.1)
[2019-12-27] MEDS: Valproic Acid Oral Soln 250 MG/5 ML UDC GTUBE SCH ×3 (06:25→22:57)
[2019-12-27] MEDS: Pantoprazole 40 MG VIAL IVP SCH ×2 (06:25→18:19)
[2019-12-27 06:29] LABS: Calcium 10.2 mg/dL (8.6-10.3); Magnesium 1.9 mg/dL (1.6-2.6); Phosphorous 2.5 mg/dL (2.7-4.5)
[2019-12-27] MEDS ORDERED: 0.9 % Sodium Chloride 250 ML IVC PRN (07:25)
[2019-12-27 08:14] LABS: Hepatitis B Surface Antibody 17.47 mIU/mL
[2019-12-27 08:25] LABS: Hepatitis B Surface Antigen Nonreactive (Nonreactive)
[2019-12-27] MEDS: ALPRAZolam 0.5 MG TABLET GTUBE SCH ×4 (09:21→22:57)
[2019-12-27] MEDS: Zinc Sulfate 220 MG CAPSULE GTUBE SCH (09:21)
[2019-12-27] MEDS: *HR* Promethazine 25 MG/ML VIAL IVP PRN (11:27)
[2019-12-27] MEDS ORDERED: *HR* Heparin 10,000 UNIT/10 ML VIAL IV PRN (13:09)
[2019-12-27] MEDS ORDERED: Potassium Phosphate 44 MEQ in 0.9 % Sodium Chloride 250 ML IVPB ONE (14:55)
[2019-12-27] MEDS: *HR* HYDROcodone/Acet 5/325 mg TABLET GTUBE PRN ×2 (16:29→22:57)
[2019-12-27] MEDS: WATER IVPB SCH (22:50)
[2019-12-27] MEDS: D5 IVPB SCH (22:50)
[2019-12-27] MEDS: COLISTIN IVPB SCH (22:50)
[2019-12-27] MEDS: Melatonin 3 MG TABLET GTUBE SCH (22:57)
[2019-12-28] MEDS: Pantoprazole 40 MG VIAL IVP SCH (04:43)
[2019-12-28 05:12] LABS: Basophils % 0.2 %; Hematocrit 29.4 % (37.5-50.1); Hemoglobin 9.4 g/dL (12.9-16.9); Immature Granulocytes % 2.3 % (0-4); Lymphocytes # 1.6 K/mcL (0.6-4.6); Lymphocytes % 10.3 %; Mean Corpuscular Hemoglobin 32.3 pg (28.0-33.3); Mean Platelet Volume 9.5 fL (9.4-12.4); Monocytes # 1.2 K/mcL (0.0-1.3); Monocytes % 7.6 %; Neutrophils # 12.4 K/mcL (1.6-8.9); Platelet Count 202 K/mcL (140-400); Red Blood Count 2.91 M/mcL (4.19-5.50); Red Cell Distribution Width 13.9 % (11.5-14.5); Segmented Neutrophils % 79.6 %; White Blood Count 15.6 K/mcL (4.3-11.1)
[2019-12-28] MEDS: Valproic Acid Oral Soln 250 MG/5 ML UDC GTUBE SCH ×2 (05:19→13:18)
[2019-12-28 05:35] LABS: Calcium 9.1 mg/dL (8.6-10.3); Potassium 4.2 mEq/L (3.5-5.1)
[2019-12-28] MEDS: ALPRAZolam 0.5 MG TABLET GTUBE SCH ×2 (08:35→12:00)
[2019-12-28] MEDS: Zinc Sulfate 220 MG CAPSULE GTUBE SCH (08:35)
[2019-12-28 11:16] VITALS: BP 141/69
[2019-12-28] MEDS: Meropenem 500 MG in 0.9 % Sodium Chloride Mini Bag 100 ML IVPB SCH (12:59)
[2019-12-28] MEDS ORDERED: D5 IVPB SCH ×2 (13:00)
[2019-12-28] MEDS ORDERED: COLISTIN IVPB SCH ×2 (13:00)
[2019-12-28] MEDS ORDERED: Meropenem 500 MG in 0.9 % Sodium Chloride Mini Bag 100 ML IVPB SCH (13:00)
[2019-12-28] MEDS ORDERED: WATER IVPB SCH ×2 (13:00)
== END 2019-12-28 14:47 | DRG 871 ==
LOC: 2NNU 16:23 → EMEROOARM 16:23 → 2NNU 20:50 → SUATTDRO 12-21 13:57
PROVIDERS: ADMIT Pharmacist; ATTEND Internal Medicine

== ENCOUNTER 2020-02-05 20:06 | Inpatient (IN) ==
[2020-02-05] MEDS ORDERED: Meropenem 500 MG in 0.9 % Sodium Chloride Mini Bag 100 ML IVPB STA (20:40)
[2020-02-05] MEDS ORDERED: Colistin (Colistimethate) 300 MG in 0.9 % Sodium Chloride 50 ML IVPB STA (20:47)
[2020-02-05 21:07] LABS: Basophils # 0.1 K/mcL (0.0-0.2); Basophils % 0.6 %; Eosinophils % 0.2 %; Hemoglobin 10.4 g/dL (12.9-16.9); Immature Granulocytes % 4.5 % (0-4); Lymphocytes # 3.2 K/mcL (0.6-4.6); Lymphocytes % 14.1 %; Mean Corpuscular HGB Conc 30.6 g/dL (31.6-35.5); Mean Corpuscular Hemoglobin 29.5 pg (28.0-33.3); Mean Corpuscular Volume 96.6 fL (83.0-100.0); Mean Platelet Volume 9.5 fL (9.4-12.4); Monocytes # 1.6 K/mcL (0.0-1.3); Neutrophils # 16.7 K/mcL (1.6-8.9); Platelet Count 324 K/mcL (140-400); Red Blood Count 3.52 M/mcL (4.19-5.50); Red Cell Distribution Width 16.2 % (11.5-14.5); Segmented Neutrophils % 73.6 %; White Blood Count 22.7 K/mcL (4.3-11.1)
[2020-02-05 21:10] LABS: INR 1.1; Prothrombin Time 12.7 Seconds (9.4-12.1)
[2020-02-05 21:28] LABS: Albumin 2.9 g/dL (3.5-5.7); Albumin/Globulin Ratio 0.8 (1.1-2.2); Bilirubin,Indirect 0.3 mg/dL (0.0-1.0); Bilirubin,Total 0.3 mg/dL (0.3-1.0); Calcium 11.5 mg/dL (8.6-10.3); Globulin 3.6 g/dL (2.4-3.5); Magnesium 2.1 mg/dL (1.6-2.6); Potassium 3.2 mEq/L (3.5-5.1); Total Protein 6.5 g/dL (6.4-8.9)
[2020-02-05 21:33] LABS: Troponin I 0.11 ng/mL (< 0.04)
[2020-02-05] MEDS ORDERED: Naloxone 0.4 MG/ML INJ IVP PRN (22:36)
[2020-02-06] MEDS ORDERED: Ondansetron Oral Soln 2 MG/2.5 ML ORAL.SYG GTUBE PRN (01:33)
[2020-02-06] MEDS ORDERED: Ipratropium/Albuterol Neb 3 ML IH PRN (01:33)
[2020-02-06] MEDS: *HR* HYDROcodone/Acet 5/325 mg TABLET GTUBE PRN ×3 (01:58→17:24)
[2020-02-06] MEDS: Melatonin 3 MG TABLET GTUBE SCH ×2 (01:58→22:19)
[2020-02-06 05:19] LABS: Hemoglobin 9.7 g/dL (12.9-16.9); Mean Platelet Volume 9.7 fL (9.4-12.4); Platelet Count 285 K/mcL (140-400)
[2020-02-06 05:21] LABS: Basophils # 0.2 K/mcL (0.0-0.2); Basophils % 0.6 %; Eosinophils # 0.1 K/mcL (0.0-0.6); Eosinophils % 0.3 %; Hematocrit 31.1 % (37.5-50.1); Immature Granulocytes % 3.8 % (0-4); Lymphocytes # 3.1 K/mcL (0.6-4.6); Lymphocytes % 11.4 %; Mean Corpuscular HGB Conc 31.2 g/dL (31.6-35.5); Mean Corpuscular Hemoglobin 29.9 pg (28.0-33.3); Monocytes # 1.9 K/mcL (0.0-1.3); Neutrophils # 20.8 K/mcL (1.6-8.9); Red Blood Count 3.24 M/mcL (4.19-5.50); Segmented Neutrophils % 76.9 %; White Blood Count 27.1 K/mcL (4.3-11.1)
[2020-02-06 05:41] LABS: Albumin/Globulin Ratio 0.9 (1.1-2.2); Bilirubin,Total 0.3 mg/dL (0.3-1.0); Calcium 11.9 mg/dL (8.6-10.3); Globulin 3.3 g/dL (2.4-3.5); Magnesium 2.2 mg/dL (1.6-2.6); Phosphorous 5.9 mg/dL (2.7-4.5); Potassium 3.2 mEq/L (3.5-5.1); Total Protein 6.3 g/dL (6.4-8.9)
[2020-02-06] MEDS: Valproic Acid Oral Soln 250 MG/5 ML UDC GTUBE SCH ×3 (07:19→22:19)
[2020-02-06] MEDS: *HR* Heparin 5,000 UNIT/ML VIAL SQ SCH ×2 (07:19→17:24)
[2020-02-06] MEDS: ALPRAZolam 0.5 MG TABLET GTUBE SCH ×4 (10:03→22:19)
[2020-02-06] MEDS: RENAL VITE GTUBE SCH (10:04)
[2020-02-06] MEDS: Zinc Sulfate 220 MG CAPSULE GTUBE SCH (10:04)
[2020-02-06] MEDS: Meropenem 500 MG in Water for inj. (sterile) 10 ML IVP SCH (22:20)
[2020-02-06] MEDS: Colistin (Colistimethate) 130 MG in 0.9 % Sodium Chloride 50 ML IVPB SCH (22:20)
[2020-02-07 02:18] LABS: Basophils % 0.5 %; Eosinophils % 0.6 %; Mean Corpuscular HGB Conc 31.3 g/dL (31.6-35.5); Mean Platelet Volume 9.7 fL (9.4-12.4)
[2020-02-07 02:20] LABS: Basophils # 0.1 K/mcL (0.0-0.2); Eosinophils # 0.2 K/mcL (0.0-0.6); Hematocrit 30.7 % (37.5-50.1); Hemoglobin 9.6 g/dL (12.9-16.9); Immature Granulocytes % 3.4 % (0-4); Lymphocytes # 2.9 K/mcL (0.6-4.6); Lymphocytes % 10.4 %; Mean Corpuscular Volume 95.9 fL (83.0-100.0); Monocytes # 1.7 K/mcL (0.0-1.3); Neutrophils # 22.2 K/mcL (1.6-8.9); Platelet Count 337 K/mcL (140-400); Red Cell Distribution Width 17.1 % (11.5-14.5); Segmented Neutrophils % 79.1 %
[2020-02-07 02:38] LABS: Albumin 2.8 g/dL (3.5-5.7); Calcium 11.7 mg/dL (8.6-10.3); Potassium 3.5 mEq/L (3.5-5.1)
[2020-02-07 03:01] LABS: Platelet Estimate Normal (Normal); Toxic Granulation Present (Not Present); Toxic Vacuolation Present (Not Present)
[2020-02-07] MEDS: Valproic Acid Oral Soln 250 MG/5 ML UDC GTUBE SCH ×3 (06:42→21:35)
[2020-02-07] MEDS: *HR* Heparin 5,000 UNIT/ML VIAL SQ SCH ×2 (06:42→18:48)
[2020-02-07] MEDS ORDERED: 0.9 % Sodium Chloride 250 ML IVC PRN (07:13)
[2020-02-07] MEDS ORDERED: 0.9 % Sodium Chloride 1,000 ML PRIME SCH (07:15)
[2020-02-07] MEDS: Zinc Sulfate 220 MG CAPSULE GTUBE SCH (08:04)
[2020-02-07] MEDS: *HR* HYDROcodone/Acet 5/325 mg TABLET GTUBE PRN ×2 (08:05→15:38)
[2020-02-07] MEDS: ALPRAZolam 0.5 MG TABLET GTUBE SCH ×4 (08:05→21:36)
[2020-02-07] MEDS: RENAL VITE GTUBE SCH (08:22)
[2020-02-07 15:05] LABS: Albumin 2.7 g/dL (3.5-5.7); Albumin/Globulin Ratio 0.9 (1.1-2.2); Bilirubin,Indirect 0.3 mg/dL (0.0-1.0); Bilirubin,Total 0.3 mg/dL (0.3-1.0); Globulin 3.1 g/dL (2.4-3.5); Total Protein 5.8 g/dL (6.4-8.9)
[2020-02-07] MEDS: Colistin (Colistimethate) 130 MG in 0.9 % Sodium Chloride 50 ML IVPB SCH (21:35)
[2020-02-07] MEDS: Meropenem 500 MG in Water for inj. (sterile) 10 ML IVP SCH (21:35)
[2020-02-07] MEDS: Melatonin 3 MG TABLET GTUBE SCH (21:36)
[2020-02-07] MEDS ORDERED: 0.9 % Sodium Chloride 250 ML IVC ONE (21:45)
[2020-02-08 05:52] LABS: Basophils # 0.1 K/mcL (0.0-0.2); Basophils % 0.5 %; Eosinophils # 0.2 K/mcL (0.0-0.6); Eosinophils % 0.8 %; Hematocrit 29.8 % (37.5-50.1); Hemoglobin 9.3 g/dL (12.9-16.9); Immature Granulocytes % 3.9 % (0-4); Lymphocytes # 2.8 K/mcL (0.6-4.6); Lymphocytes % 11.5 %; Mean Corpuscular HGB Conc 31.2 g/dL (31.6-35.5); Mean Corpuscular Hemoglobin 30.3 pg (28.0-33.3); Mean Corpuscular Volume 97.1 fL (83.0-100.0); Mean Platelet Volume 9.8 fL (9.4-12.4); Monocytes # 1.9 K/mcL (0.0-1.3); Monocytes % 7.8 %; Platelet Count 296 K/mcL (140-400); Red Blood Count 3.07 M/mcL (4.19-5.50); Red Cell Distribution Width 17.6 % (11.5-14.5); Segmented Neutrophils % 75.5 %; White Blood Count 23.9 K/mcL (4.3-11.1)
[2020-02-08 06:11] LABS: Calcium 10.9 mg/dL (8.6-10.3); Potassium 3.3 mEq/L (3.5-5.1)
[2020-02-08] MEDS: *HR* Heparin 5,000 UNIT/ML VIAL SQ SCH ×2 (06:13→17:10)
[2020-02-08] MEDS: Valproic Acid Oral Soln 250 MG/5 ML UDC GTUBE SCH ×3 (06:13→21:03)
[2020-02-08] MEDS: Zinc Sulfate 220 MG CAPSULE GTUBE SCH (09:01)
[2020-02-08] MEDS: ALPRAZolam 0.5 MG TABLET GTUBE SCH ×4 (09:01→21:03)
[2020-02-08] MEDS: RENAL VITE GTUBE SCH (09:03)
[2020-02-08] MEDS: Meropenem 500 MG in Water for inj. (sterile) 10 ML IVP SCH (21:03)
[2020-02-08] MEDS: Melatonin 3 MG TABLET GTUBE SCH (21:03)
[2020-02-08] MEDS: *HR* HYDROcodone/Acet 5/325 mg TABLET GTUBE PRN (21:03)
[2020-02-08] MEDS: Colistin (Colistimethate) 130 MG in 0.9 % Sodium Chloride 50 ML IVPB SCH (21:55)
[2020-02-09 04:45] LABS: Lambda Qnt Free Light Chains 114.71 mg/L (5.71-26.30)
[2020-02-09] MEDS: Valproic Acid Oral Soln 250 MG/5 ML UDC GTUBE SCH ×3 (05:14→21:20)
[2020-02-09] MEDS: *HR* Heparin 5,000 UNIT/ML VIAL SQ SCH ×2 (05:14→16:50)
[2020-02-09] MEDS ORDERED: 0.9 % Sodium Chloride 250 ML IVC PRN (07:19)
[2020-02-09 07:21] LABS: Kappa Qnt Free Light Chains 234.28 mg/L (3.30-19.40)
[2020-02-09] MEDS ORDERED: 0.9 % Sodium Chloride 1,000 ML PRIME SCH (07:30)
[2020-02-09] MEDS ORDERED: *HR* Heparin 10,000 UNIT/10 ML VIAL IV PRN (11:26)
[2020-02-09] MEDS: Zinc Sulfate 220 MG CAPSULE GTUBE SCH (13:24)
[2020-02-09] MEDS: ALPRAZolam 0.5 MG TABLET GTUBE SCH ×4 (13:25→21:19)
[2020-02-09 14:17] LABS: Basophils # 0.1 K/mcL (0.0-0.2); Basophils % 0.6 %; Eosinophils # 0.3 K/mcL (0.0-0.6); Eosinophils % 1.6 %; Hematocrit 31.3 % (37.5-50.1); Hemoglobin 9.8 g/dL (12.9-16.9); Immature Granulocytes % 3.9 % (0-4); Lymphocytes # 1.5 K/mcL (0.6-4.6); Lymphocytes % 7.7 %; Mean Corpuscular HGB Conc 31.3 g/dL (31.6-35.5); Mean Corpuscular Hemoglobin 30.5 pg (28.0-33.3); Mean Corpuscular Volume 97.5 fL (83.0-100.0); Mean Platelet Volume 9.8 fL (9.4-12.4); Monocytes # 1.2 K/mcL (0.0-1.3); Neutrophils # 15.9 K/mcL (1.6-8.9); Platelet Count 285 K/mcL (140-400); Red Blood Count 3.21 M/mcL (4.19-5.50); Red Cell Distribution Width 17.3 % (11.5-14.5); Segmented Neutrophils % 80.2 %; White Blood Count 19.8 K/mcL (4.3-11.1)
[2020-02-09] MEDS: *HR* HYDROcodone/Acet 5/325 mg TABLET GTUBE PRN ×2 (15:01→21:19)
[2020-02-09] MEDS: GuaiFENesin Liq 200 MG/10 ML UDC GTUBE PRN ×2 (15:01→21:20)
[2020-02-09 15:04] LABS: Calcium 10.4 mg/dL (8.6-10.3); Potassium 4.1 mEq/L (3.5-5.1)
[2020-02-09] MEDS: Melatonin 3 MG TABLET GTUBE SCH (21:19)
[2020-02-09] MEDS: Meropenem 500 MG in Water for inj. (sterile) 10 ML IVP SCH (21:20)
[2020-02-09] MEDS: Colistin (Colistimethate) 130 MG in 0.9 % Sodium Chloride 50 ML IVPB SCH (21:20)
[2020-02-10] MEDS: Valproic Acid Oral Soln 250 MG/5 ML UDC GTUBE SCH ×3 (05:52→21:01)
[2020-02-10] MEDS: *HR* Heparin 5,000 UNIT/ML VIAL SQ SCH ×2 (05:52→17:51)
[2020-02-10 07:45] LABS: Alpha 2 Globulin (PEP) 0.75 g/dL (0.48-1.05); Beta Globulin (PEP) 0.81 g/dL (0.48-1.10)
[2020-02-10] MEDS: Zinc Sulfate 220 MG CAPSULE GTUBE SCH (09:55)
[2020-02-10] MEDS: ALPRAZolam 0.5 MG TABLET GTUBE SCH ×4 (09:55→22:16)
[2020-02-10 11:04] LABS: IFE Reflexed NOT DONE
[2020-02-10 11:16] LABS: Hematocrit 27.9 % (37.5-50.1); Hemoglobin 8.4 g/dL (12.9-16.9); Mean Corpuscular HGB Conc 30.1 g/dL (31.6-35.5); Mean Corpuscular Hemoglobin 29.6 pg (28.0-33.3); Mean Corpuscular Volume 98.2 fL (83.0-100.0); Mean Platelet Volume 9.9 fL (9.4-12.4); Platelet Count 223 K/mcL (140-400); Red Blood Count 2.84 M/mcL (4.19-5.50); Red Cell Distribution Width 17.1 % (11.5-14.5)
[2020-02-10 11:39] LABS: Potassium 3.9 mEq/L (3.5-5.1)
[2020-02-10 17:45] LABS: Hepatitis B Surface Antigen Nonreactive (Nonreactive)
[2020-02-10 18:13] LABS: Hepatitis C Virus Antibody Nonreactive (Nonreactive)
[2020-02-10 18:14] LABS: Hepatitis B Core IgM Nonreactive (Nonreactive)
[2020-02-10 18:15] LABS: Hepatitis A Antibody IgM Nonreactive (Nonreactive)
[2020-02-10] MEDS: Melatonin 3 MG TABLET GTUBE SCH (21:01)
[2020-02-10] MEDS: Meropenem 500 MG in Water for inj. (sterile) 10 ML IVP SCH (21:01)
[2020-02-10] MEDS: Colistin (Colistimethate) 130 MG in 0.9 % Sodium Chloride 50 ML IVPB SCH (22:15)
[2020-02-11 03:24] LABS: Hematocrit 24.9 % (37.5-50.1); Hemoglobin 7.7 g/dL (12.9-16.9); Mean Corpuscular HGB Conc 30.9 g/dL (31.6-35.5); Mean Corpuscular Hemoglobin 29.8 pg (28.0-33.3); Mean Corpuscular Volume 96.5 fL (83.0-100.0); Mean Platelet Volume 9.6 fL (9.4-12.4); Platelet Count 232 K/mcL (140-400); Red Blood Count 2.58 M/mcL (4.19-5.50); Red Cell Distribution Width 16.7 % (11.5-14.5); White Blood Count 14.9 K/mcL (4.3-11.1)
[2020-02-11 03:45] LABS: Calcium 13.6 mg/dL (8.6-10.3); Potassium 3.9 mEq/L (3.5-5.1)
[2020-02-11] MEDS: Valproic Acid Oral Soln 250 MG/5 ML UDC GTUBE SCH ×3 (05:24→20:18)
[2020-02-11] MEDS: *HR* Heparin 5,000 UNIT/ML VIAL SQ SCH ×2 (05:24→16:59)
[2020-02-11] MEDS ORDERED: 0.9 % Sodium Chloride 250 ML IVC PRN (07:11)
[2020-02-11] MEDS ORDERED: *HR* Heparin 10,000 UNIT/10 ML VIAL IV PRN (07:11)
[2020-02-11] MEDS ORDERED: 0.9 % Sodium Chloride 1,000 ML PRIME SCH (07:15)
[2020-02-11] MEDS: Zinc Sulfate 220 MG CAPSULE GTUBE SCH (07:58)
[2020-02-11] MEDS: ALPRAZolam 0.5 MG TABLET GTUBE SCH ×4 (07:58→20:18)
[2020-02-11] MEDS: *HR* HYDROcodone/Acet 5/325 mg TABLET GTUBE PRN (13:40)
[2020-02-11] MEDS: levoFLOXacin 500 MG/100 ML 500 MG/100 ML BAG IVPB SCH (20:18)
[2020-02-11] MEDS: Melatonin 3 MG TABLET GTUBE SCH (20:18)
[2020-02-12] MEDS: Valproic Acid Oral Soln 250 MG/5 ML UDC GTUBE SCH ×3 (05:36→22:14)
[2020-02-12] MEDS: *HR* Heparin 5,000 UNIT/ML VIAL SQ SCH ×2 (05:36→17:57)
[2020-02-12] MEDS: Colistin (Colistimethate) 130 MG in 0.9 % Sodium Chloride 50 ML IVPB SCH ×2 (05:38→06:19)
[2020-02-12] MEDS: *HR* HYDROcodone/Acet 5/325 mg TABLET GTUBE PRN (10:09)
[2020-02-12] MEDS: ALPRAZolam 0.5 MG TABLET GTUBE SCH ×4 (10:09→22:14)
[2020-02-12] MEDS: Zinc Sulfate 220 MG CAPSULE GTUBE SCH (10:10)
[2020-02-12 13:46] LABS: Hematocrit 26.6 % (37.5-50.1); Hemoglobin 8.3 g/dL (12.9-16.9); Mean Corpuscular HGB Conc 31.2 g/dL (31.6-35.5); Mean Corpuscular Hemoglobin 30.2 pg (28.0-33.3); Mean Corpuscular Volume 96.7 fL (83.0-100.0); Mean Platelet Volume 10.1 fL (9.4-12.4); Platelet Count 238 K/mcL (140-400); Red Blood Count 2.75 M/mcL (4.19-5.50); Red Cell Distribution Width 16.5 % (11.5-14.5); White Blood Count 23.9 K/mcL (4.3-11.1)
[2020-02-12 14:03] LABS: Calcium 13.1 mg/dL (8.6-10.3); Potassium 4.2 mEq/L (3.5-5.1)
[2020-02-12] MEDS: Melatonin 3 MG TABLET GTUBE SCH (22:14)
[2020-02-13] MEDS: *HR* Heparin 5,000 UNIT/ML VIAL SQ SCH ×2 (04:52→15:07)
[2020-02-13] MEDS: Valproic Acid Oral Soln 250 MG/5 ML UDC GTUBE SCH ×3 (04:52→21:31)
[2020-02-13 05:23] LABS: Hematocrit 27.3 % (37.5-50.1); Hemoglobin 8.4 g/dL (12.9-16.9); Mean Corpuscular HGB Conc 30.8 g/dL (31.6-35.5); Mean Corpuscular Volume 97.5 fL (83.0-100.0); Mean Platelet Volume 10.4 fL (9.4-12.4); Platelet Count 252 K/mcL (140-400); Red Cell Distribution Width 16.3 % (11.5-14.5); White Blood Count 18.1 K/mcL (4.3-11.1)
[2020-02-13 05:53] LABS: Calcium 14.6 mg/dL (8.6-10.3); Potassium 4.3 mEq/L (3.5-5.1)
[2020-02-13] MEDS: Colistin (Colistimethate) 130 MG in 0.9 % Sodium Chloride 50 ML IVPB SCH (09:07)
[2020-02-13] MEDS: ALPRAZolam 0.5 MG TABLET GTUBE SCH ×4 (09:07→21:31)
[2020-02-13] MEDS: Zinc Sulfate 220 MG CAPSULE GTUBE SCH (09:08)
[2020-02-13] MEDS: *HR* HYDROcodone/Acet 5/325 mg TABLET GTUBE PRN (12:21)
[2020-02-13] MEDS: Calcitonin-Salmon, Synthetic 400 UNIT/2 ML VIAL IM SCH ×2 (15:07→21:29)
[2020-02-13] MEDS ORDERED: Furosemide 40 MG/4 ML VIAL IVP ONE (15:18)
[2020-02-13] MEDS: levoFLOXacin 500 MG/100 ML 500 MG/100 ML BAG IVPB SCH (21:29)
[2020-02-13] MEDS: Melatonin 3 MG TABLET GTUBE SCH (21:29)
[2020-02-14] MEDS: Valproic Acid Oral Soln 250 MG/5 ML UDC GTUBE SCH ×3 (05:32→19:41)
[2020-02-14] MEDS: *HR* Heparin 5,000 UNIT/ML VIAL SQ SCH ×2 (05:32→16:39)
[2020-02-14] MEDS: Colistin (Colistimethate) 130 MG in 0.9 % Sodium Chloride 50 ML IVPB SCH (06:05)
[2020-02-14] MEDS: Zinc Sulfate 220 MG CAPSULE GTUBE SCH (09:02)
[2020-02-14] MEDS: Calcitonin-Salmon, Synthetic 400 UNIT/2 ML VIAL IM SCH (09:02)
[2020-02-14] MEDS: ALPRAZolam 0.5 MG TABLET GTUBE SCH ×4 (09:02→19:41)
[2020-02-14] MEDS ORDERED: 0.9 % Sodium Chloride 250 ML IVC PRN (09:48)
[2020-02-14] MEDS ORDERED: *HR* Heparin 10,000 UNIT/10 ML VIAL IV PRN (09:48)
[2020-02-14] MEDS ORDERED: 0.9 % Sodium Chloride 1,000 ML PRIME SCH (10:00)
[2020-02-14 10:38] LABS: ABG Base Excess 7 mEq/L (-2 to 3); ABG HCO3 32 mEq/L (21-27); ABG Oxygen Saturation 95 % (95-98); ABG PCO2 49 mmHg (35-45); ABG PH 7.42 pH Units (7.32-7.45); ABG PO2 74 mmHg (85-104); ABG TCO2 33 mEq/L (20-26)
[2020-02-14 10:47] LABS: Hematocrit 25.1 % (37.5-50.1); Hemoglobin 7.6 g/dL (12.9-16.9); Mean Corpuscular HGB Conc 30.3 g/dL (31.6-35.5); Mean Corpuscular Hemoglobin 29.1 pg (28.0-33.3); Mean Corpuscular Volume 96.2 fL (83.0-100.0); Mean Platelet Volume 10.3 fL (9.4-12.4); Platelet Count 269 K/mcL (140-400); Red Blood Count 2.61 M/mcL (4.19-5.50); Red Cell Distribution Width 16.7 % (11.5-14.5); White Blood Count 16.5 K/mcL (4.3-11.1)
[2020-02-14 11:10] LABS: Albumin 2.5 g/dL (3.5-5.7); Albumin/Globulin Ratio 0.8 (1.1-2.2); Bilirubin,Total 0.3 mg/dL (0.3-1.0); Calcium 14.4 mg/dL (8.6-10.3); Globulin 3.2 g/dL (2.4-3.5); Potassium 4.6 mEq/L (3.5-5.1); Total Protein 5.7 g/dL (6.4-8.9)
[2020-02-14] MEDS ORDERED: 0.9 % Sodium Chloride 250 ML IVC ONE (19:22)
[2020-02-14] MEDS: Melatonin 3 MG TABLET GTUBE SCH (19:41)
[2020-02-14] MEDS ORDERED: 0.9 % Sodium Chloride 500 ML IVC ONE (20:30)
[2020-02-14] MEDS ORDERED: Calcitonin-Salmon, Synthetic 400 UNIT/2 ML VIAL IM SCH (21:00)
[2020-02-15] MEDS ORDERED: Norepinephrine 4 MG/254 ML IV.SOLN IVC SCH ×2 (01:30→07:32)
[2020-02-15 04:39] LABS: Hematocrit 26.1 % (37.5-50.1); Hemoglobin 7.8 g/dL (12.9-16.9); Mean Corpuscular HGB Conc 29.9 g/dL (31.6-35.5); Mean Corpuscular Hemoglobin 28.9 pg (28.0-33.3); Mean Corpuscular Volume 96.7 fL (83.0-100.0); Mean Platelet Volume 10.2 fL (9.4-12.4); Platelet Count 282 K/mcL (140-400); Red Cell Distribution Width 16.8 % (11.5-14.5)
[2020-02-15 04:57] LABS: Calcium 11.4 mg/dL (8.6-10.3); Potassium 5.2 mEq/L (3.5-5.1)
[2020-02-15] MEDS: *HR* Heparin 5,000 UNIT/ML VIAL SQ SCH ×2 (05:16→17:36)
[2020-02-15] MEDS: Valproic Acid Oral Soln 250 MG/5 ML UDC GTUBE SCH ×3 (05:16→21:02)
[2020-02-15] MEDS: Colistin (Colistimethate) 130 MG in 0.9 % Sodium Chloride 50 ML IVPB SCH (06:10)
[2020-02-15] MEDS ORDERED: Naloxone 0.4 MG/ML INJ IVP PRN (07:32)
[2020-02-15] MEDS ORDERED: 0.9 % Sodium Chloride 1,000 ML PRIME SCH (07:32)
[2020-02-15] MEDS ORDERED: 0.9 % Sodium Chloride 250 ML IVC PRN (07:32)
[2020-02-15] MEDS ORDERED: Ondansetron Oral Soln 2 MG/2.5 ML ORAL.SYG GTUBE PRN (07:32)
[2020-02-15] MEDS ORDERED: *HR* Heparin 10,000 UNIT/10 ML VIAL IV PRN (07:32)
[2020-02-15] MEDS ORDERED: GuaiFENesin Liq 200 MG/10 ML UDC GTUBE PRN (07:32)
[2020-02-15] MEDS: ALPRAZolam 0.5 MG TABLET GTUBE SCH ×6 (07:55→21:02)
[2020-02-15] MEDS ORDERED: Ipratropium/Albuterol Neb 3 ML IH PRN (08:00)
[2020-02-15] MEDS ORDERED: *HR* Dextrose 50 % in Water (Vial) 50 ML VIAL IVP ONE (08:08)
[2020-02-15] MEDS ORDERED: *HR* Dextrose 50 % in Water (Vial) 50 ML VIAL ONE (08:13)
[2020-02-15] MEDS: Zinc Sulfate 220 MG CAPSULE GTUBE SCH (08:16)
[2020-02-15] MEDS: Calcitonin-Salmon, Synthetic 400 UNIT/2 ML VIAL IM SCH ×2 (08:19→21:51)
[2020-02-15] MEDS: *HR* HYDROcodone/Acet 5/325 mg TABLET GTUBE PRN (15:12)
[2020-02-15] MEDS ORDERED: Metoclopramide 10 MG/2 ML VIAL IVP ONE (15:12)
[2020-02-15] MEDS: Melatonin 3 MG TABLET GTUBE SCH (21:02)
[2020-02-15] MEDS: levoFLOXacin 500 MG/100 ML 500 MG/100 ML BAG IVPB SCH (21:02)
[2020-02-16] MEDS: Valproic Acid Oral Soln 250 MG/5 ML UDC GTUBE SCH ×3 (05:47→20:03)
[2020-02-16] MEDS: *HR* Heparin 5,000 UNIT/ML VIAL SQ SCH (05:47)
[2020-02-16] MEDS: Colistin (Colistimethate) 130 MG in 0.9 % Sodium Chloride 50 ML IVPB SCH (05:47)
[2020-02-16] MEDS: *HR* HYDROcodone/Acet 5/325 mg TABLET GTUBE PRN ×2 (05:58→12:26)
[2020-02-16] MEDS ORDERED: *HR* Heparin 10,000 UNIT/10 ML VIAL IV PRN (07:46)
[2020-02-16] MEDS ORDERED: 0.9 % Sodium Chloride 250 ML IVC PRN (07:46)
[2020-02-16 09:19] LABS: Basophils % 0.4 %; Eosinophils # 0.2 K/mcL (0.0-0.6); Eosinophils % 1.9 %; Hematocrit 20.8 % (37.5-50.1); Hemoglobin 6.3 g/dL (12.9-16.9); Immature Granulocytes % 1.3 % (0-4); Lymphocytes # 1.7 K/mcL (0.6-4.6); Lymphocytes % 15.5 %; Mean Corpuscular HGB Conc 30.3 g/dL (31.6-35.5); Mean Corpuscular Hemoglobin 28.8 pg (28.0-33.3); Monocytes # 0.8 K/mcL (0.0-1.3); Monocytes % 7.6 %; Platelet Count 266 K/mcL (140-400); Red Blood Count 2.19 M/mcL (4.19-5.50); Red Cell Distribution Width 16.6 % (11.5-14.5); Segmented Neutrophils % 73.3 %; White Blood Count 10.9 K/mcL (4.3-11.1)
[2020-02-16 09:39] LABS: Calcium 11.3 mg/dL (8.6-10.3); Phosphorous 5.7 mg/dL (2.7-4.5); Potassium 3.6 mEq/L (3.5-5.1)
[2020-02-16 10:00] LABS: Folate 18.1 ng/mL (3.0-16.0)
[2020-02-16] MEDS: ALPRAZolam 0.5 MG TABLET GTUBE SCH ×4 (12:08→20:04)
[2020-02-16] MEDS: Zinc Sulfate 220 MG CAPSULE GTUBE SCH (12:08)
[2020-02-16 16:18] LABS: Hematocrit 24.1 % (37.5-50.1); Hemoglobin 7.4 g/dL (12.9-16.9)
[2020-02-16] MEDS: Melatonin 3 MG TABLET GTUBE SCH (20:04)
[2020-02-17] MEDS: *HR* HYDROcodone/Acet 5/325 mg TABLET GTUBE PRN ×2 (05:11→11:13)
[2020-02-17] MEDS: Valproic Acid Oral Soln 250 MG/5 ML UDC GTUBE SCH ×3 (05:11→22:05)
[2020-02-17] MEDS: Colistin (Colistimethate) 130 MG in 0.9 % Sodium Chloride 50 ML IVPB SCH (05:12)
[2020-02-17 05:32] LABS: Hematocrit 22.9 % (37.5-50.1); Hemoglobin 6.8 g/dL (12.9-16.9); Mean Corpuscular HGB Conc 29.7 g/dL (31.6-35.5); Mean Corpuscular Hemoglobin 28.1 pg (28.0-33.3); Mean Corpuscular Volume 94.6 fL (83.0-100.0); Mean Platelet Volume 9.5 fL (9.4-12.4); Platelet Count 306 K/mcL (140-400); Red Blood Count 2.42 M/mcL (4.19-5.50); Red Cell Distribution Width 16.6 % (11.5-14.5); White Blood Count 14.4 K/mcL (4.3-11.1)
[2020-02-17 05:51] LABS: Phosphorous 5.5 mg/dL (2.7-4.5)
[2020-02-17 05:52] LABS: Calcium 11.4 mg/dL (8.6-10.3); Potassium 3.5 mEq/L (3.5-5.1)
[2020-02-17] MEDS: ALPRAZolam 0.5 MG TABLET GTUBE SCH ×4 (07:35→22:05)
[2020-02-17] MEDS: Zinc Sulfate 220 MG CAPSULE GTUBE SCH (07:35)
[2020-02-17] MEDS ORDERED: 0.9 % Sodium Chloride 250 ML ONE (12:14)
[2020-02-17 17:49] LABS: Hematocrit 24.1 % (37.5-50.1); Hemoglobin 7.4 g/dL (12.9-16.9)
[2020-02-17] MEDS: Melatonin 3 MG TABLET GTUBE SCH (22:05)
[2020-02-17] MEDS: levoFLOXacin 500 MG/100 ML 500 MG/100 ML BAG IVPB SCH (22:06)
[2020-02-18] MEDS: Colistin (Colistimethate) 130 MG in 0.9 % Sodium Chloride 50 ML IVPB SCH (04:55)
[2020-02-18] MEDS: Valproic Acid Oral Soln 250 MG/5 ML UDC GTUBE SCH ×2 (05:01→12:43)
[2020-02-18 05:46] LABS: Hematocrit 24.3 % (37.5-50.1); Hemoglobin 7.6 g/dL (12.9-16.9); Mean Corpuscular HGB Conc 31.3 g/dL (31.6-35.5); Mean Corpuscular Hemoglobin 29.2 pg (28.0-33.3); Mean Corpuscular Volume 93.5 fL (83.0-100.0); Mean Platelet Volume 9.5 fL (9.4-12.4); Platelet Count 263 K/mcL (140-400); Red Cell Distribution Width 16.5 % (11.5-14.5); White Blood Count 12.3 K/mcL (4.3-11.1)
[2020-02-18 06:11] LABS: Phosphorous 7.1 mg/dL (2.7-4.5)
[2020-02-18 06:32] LABS: Calcium 13.8 mg/dL (8.6-10.3); Potassium 3.5 mEq/L (3.5-5.1)
[2020-02-18] MEDS ORDERED: 0.9 % Sodium Chloride 250 ML IVC PRN (08:32)
[2020-02-18] MEDS ORDERED: *HR* Heparin 10,000 UNIT/10 ML VIAL IV PRN (08:32)
[2020-02-18] MEDS: Zinc Sulfate 220 MG CAPSULE GTUBE SCH (10:34)
[2020-02-18] MEDS: ALPRAZolam 0.5 MG TABLET GTUBE SCH ×2 (10:35→12:43)
[2020-02-18] MEDS: *HR* HYDROcodone/Acet 5/325 mg TABLET GTUBE PRN (12:46)
[2020-02-18 16:49] VITALS: BP 119/70
== END 2020-02-18 17:59 | DRG 698 ==
LOC: 2ANU 20:06 → EMEROOARM 20:06 → 2ANU 22:26 → SUATTDRO 22:36 → ICNU 02-15 00:45 → 2ANU 02-15 10:18
PROVIDERS: ADMIT Family Medicine; ATTEND Internal Medicine

== ENCOUNTER 2020-02-24 15:15 | Inpatient (IN) ==
[2020-02-24] MEDS ORDERED: Acetaminophen 325 MG TABLET PO PRN (15:46)
[2020-02-24] MEDS ORDERED: Naloxone 0.4 MG/ML INJ IVP PRN (15:46)
[2020-02-24] MEDS ORDERED: Tigecycline 100 MG in 0.9 % Sodium Chloride 100 ML IVPB ONE (15:53)
[2020-02-24] MEDS ORDERED: Artificial Tears SOLN 15 ML BOTTLE BOTH EYES PRN (15:58)
[2020-02-24 16:09] LABS: ABG Base Excess 6 mEq/L (-2 to 3); ABG HCO3 29 mEq/L (21-27); ABG Oxygen Saturation 99 % (95-98); ABG PCO2 37 mmHg (35-45); ABG PO2 107 mmHg (85-104); ABG TCO2 30 mEq/L (20-26); Blood Gas VT 500 cc
[2020-02-24] MEDS ORDERED: *HR* Midazolam HCl 5 MG/5 ML VIAL IVP ONE ×2 (16:27→16:34)
[2020-02-24 17:54] LABS: INR 1.2; Prothrombin Time 14.2 Seconds (9.4-12.1)
[2020-02-24 18:02] LABS: Eosinophils % 0.1 %; Hemoglobin 7.1 g/dL (12.9-16.9)
[2020-02-24 18:04] LABS: Basophils % 0.5 %; Hematocrit 23.9 % (37.5-50.1); Immature Granulocytes % 4.3 % (0-4); Lymphocytes % 3.4 %; Mean Corpuscular HGB Conc 29.7 g/dL (31.6-35.5); Mean Corpuscular Hemoglobin 28.4 pg (28.0-33.3); Mean Corpuscular Volume 95.6 fL (83.0-100.0); Monocytes # 2.8 K/mcL (0.0-1.3); Monocytes % 9.6 %; Neutrophils # 23.8 K/mcL (1.6-8.9); Platelet Count 274 K/mcL (140-400); Red Cell Distribution Width 16.6 % (11.5-14.5); Segmented Neutrophils % 82.1 %
[2020-02-24 18:07] LABS: Albumin 2.3 g/dL (3.5-5.7); Albumin/Globulin Ratio 0.7 (1.1-2.2); Basophils # 0.2 K/mcL (0.0-0.2); Bilirubin,Indirect 0.3 mg/dL (0.0-1.0); Bilirubin,Total 0.3 mg/dL (0.3-1.0); Calcium 12.7 mg/dL (8.6-10.3); Globulin 3.2 g/dL (2.4-3.5); Phosphorous 2.5 mg/dL (2.7-4.5); Potassium 3.9 mEq/L (3.5-5.1); Total Protein 5.5 g/dL (6.4-8.9)
[2020-02-24] MEDS: FentaNYL (PF) 1,000 MCG/100 ML IV.SOLN IVC SCH (18:14)
[2020-02-24] MEDS: Piperacillin/Tazobactam 3.375 GM in 0.9 % Sodium Chloride Mini Bag 100 ML IVPB SCH (18:14)
[2020-02-24] MEDS: Artificial Tears SOLN 15 ML BOTTLE BOTH EYES SCH ×2 (18:14→19:57)
[2020-02-24 18:20] LABS: Anisocytosis 1+ (Not Present); Hypochromasia Present (Not Present); Platelet Estimate Normal (Normal); Polychromasia 1+ (Not Present)
[2020-02-24] MEDS ORDERED: Perflutren Lipid Microsphere 1.3 ML in 0.9 % Sodium Chloride 8.7 ML IVP PRN (18:21)
[2020-02-24] MEDS: Norepinephrine 4 MG/254 ML IV.SOLN IVC SCH (18:46)
[2020-02-24] MEDS: Chlorhexidine Rinse 15 ML MOUTHWASH MM SCH (19:57)
[2020-02-24] MEDS: Budesonide/Formoterol 160/4.5 1 PUFF INH IH SCH (20:34)
[2020-02-25 00:19] LABS: Bacteria,Urine Many per hpf (None-Few); Bilirubin,Urine Negative (Negative); Blood,Urine Moderate (Negative); Budding Yeast,Urine Many per hpf (None Seen); Clarity,Urine Ex.Turbid (Clear); Color,Urine Yellow (Yellow); Glucose,Urine (UA) Normal (Normal); Ketones,Urine Negative (Negative); Leukocyte Esterase,Urine Large (Negative); Mucus,Urine Few per lpf (None-Few); Nitrite,Urine Negative (Negative); Protein,Urine >=300 mg/dL (Neg-Trace); RBC,Urine 50-100 per hpf (0-3); Specific Gravity,Urine 1.014 (1.010-1.025); Urobilinogen,Urine Normal (Normal); WBC,Urine TNTC per hpf (0-3)
[2020-02-25] MEDS: Artificial Tears SOLN 15 ML BOTTLE BOTH EYES SCH ×7 (03:25→23:06)
[2020-02-25 03:58] LABS: Immature Granulocytes % 3.7 % (0-4); Lymphocytes % 5.6 %; Mean Platelet Volume 9.7 fL (9.4-12.4); Monocytes % 9.5 %
[2020-02-25 04:00] LABS: Basophils # 0.1 K/mcL (0.0-0.2); Basophils % 0.4 %; Eosinophils # 0.2 K/mcL (0.0-0.6); Eosinophils % 0.8 %; Hematocrit 23.5 % (37.5-50.1); Lymphocytes # 1.6 K/mcL (0.6-4.6); Mean Corpuscular HGB Conc 29.8 g/dL (31.6-35.5); Mean Corpuscular Hemoglobin 28.8 pg (28.0-33.3); Mean Corpuscular Volume 96.7 fL (83.0-100.0); Monocytes # 2.7 K/mcL (0.0-1.3); Platelet Count 305 K/mcL (140-400); Red Blood Count 2.43 M/mcL (4.19-5.50); Red Cell Distribution Width 16.5 % (11.5-14.5); White Blood Count 28.3 K/mcL (4.3-11.1)
[2020-02-25 04:02] LABS: Neutrophils # 22.6 K/mcL (1.6-8.9)
[2020-02-25 04:17] LABS: Albumin 2.2 g/dL (3.5-5.7); Albumin/Globulin Ratio 0.7 (1.1-2.2); Bilirubin,Total 0.3 mg/dL (0.3-1.0); Calcium 12.6 mg/dL (8.6-10.3); Globulin 3.1 g/dL (2.4-3.5); Phosphorous 3.5 mg/dL (2.7-4.5); Potassium 4.2 mEq/L (3.5-5.1); Total Protein 5.3 g/dL (6.4-8.9)
[2020-02-25 04:27] LABS: Platelet Estimate Normal (Normal)
[2020-02-25] MEDS: *HR* Heparin 5,000 UNIT/ML VIAL SQ SCH ×2 (04:57→17:38)
[2020-02-25 05:08] LABS: ABG Base Excess 6 mEq/L (-2 to 3); ABG HCO3 32 mEq/L (21-27); ABG Oxygen Saturation 99 % (95-98); ABG PCO2 54 mmHg (35-45); ABG PH 7.39 pH Units (7.32-7.45); ABG PO2 147 mmHg (85-104); ABG TCO2 34 mEq/L (20-26); Blood Gas Modality ASSIST CONTROL; Blood Gas VT 450 cc
[2020-02-25] MEDS: Piperacillin/Tazobactam 3.375 GM in 0.9 % Sodium Chloride Mini Bag 100 ML IVPB SCH ×2 (05:18→17:38)
[2020-02-25] MEDS ORDERED: Tigecycline 50 MG in 0.9 % Sodium Chloride Mini Bag 100 ML IVPB SCH (06:00)
[2020-02-25] MEDS: Budesonide/Formoterol 160/4.5 1 PUFF INH IH SCH ×2 (07:48→20:33)
[2020-02-25] MEDS: Chlorhexidine Rinse 15 ML MOUTHWASH MM SCH ×2 (07:49→20:35)
[2020-02-25] MEDS: Pantoprazole 40 MG VIAL IVP SCH (07:49)
[2020-02-25 11:16] LABS: Troponin I 0.17 ng/mL (< 0.04)
[2020-02-25] MEDS: Norepinephrine 4 MG/254 ML IV.SOLN IVC SCH ×2 (11:35→19:43)
[2020-02-25] MEDS: FentaNYL (PF) 1,000 MCG/100 ML IV.SOLN IVC SCH (13:23)
[2020-02-25] MEDS ORDERED: 0.9 % Sodium Chloride 250 ML IVC PRN (13:29)
[2020-02-25] MEDS ORDERED: *HR* Heparin 10,000 UNIT/10 ML VIAL IV PRN (13:29)
[2020-02-25] MEDS ORDERED: 0.9 % Sodium Chloride 1,000 ML PRIME SCH (13:30)
[2020-02-25] MEDS ORDERED: 0.9 % Sodium Chloride 1,000 ML ONE (13:38)
[2020-02-25 16:16] LABS: Magnesium 2.1 mg/dL (1.6-2.6)
[2020-02-26] MEDS: Artificial Tears SOLN 15 ML BOTTLE BOTH EYES SCH ×5 (03:38→20:18)
[2020-02-26 04:25] LABS: Hematocrit 22.6 % (37.5-50.1); Hemoglobin 6.7 g/dL (12.9-16.9); Mean Corpuscular HGB Conc 29.6 g/dL (31.6-35.5); Mean Corpuscular Hemoglobin 28.9 pg (28.0-33.3); Mean Corpuscular Volume 97.4 fL (83.0-100.0); Mean Platelet Volume 9.6 fL (9.4-12.4); Platelet Count 292 K/mcL (140-400); Red Blood Count 2.32 M/mcL (4.19-5.50); White Blood Count 21.9 K/mcL (4.3-11.1)
[2020-02-26] MEDS: Norepinephrine 4 MG/254 ML IV.SOLN IVC SCH (04:28)
[2020-02-26 04:34] LABS: VBG Ionized Calcium 1.55 mmol/L (1.15-1.35)
[2020-02-26 04:39] LABS: Albumin 2.1 g/dL (3.5-5.7); Albumin/Globulin Ratio 0.7 (1.1-2.2); Bilirubin,Total 0.3 mg/dL (0.3-1.0); Magnesium 1.9 mg/dL (1.6-2.6); Phosphorous 2.9 mg/dL (2.7-4.5); Potassium 3.6 mEq/L (3.5-5.1); Total Protein 5.1 g/dL (6.4-8.9)
[2020-02-26] MEDS: Piperacillin/Tazobactam 3.375 GM in 0.9 % Sodium Chloride Mini Bag 100 ML IVPB SCH (04:56)
[2020-02-26] MEDS: *HR* Heparin 5,000 UNIT/ML VIAL SQ SCH ×2 (04:56→17:26)
[2020-02-26 05:01] LABS: ABG Base Excess 4 mEq/L (-2 to 3); ABG HCO3 28 mEq/L (21-27); ABG Oxygen Saturation 95 % (95-98); ABG PCO2 43 mmHg (35-45); ABG PH 7.43 pH Units (7.32-7.45); ABG PO2 71 mmHg (85-104); ABG TCO2 30 mEq/L (20-26); Blood Gas Modality ASSIST CONTROL; Blood Gas VT 450 cc
[2020-02-26 05:13] LABS: Lymphocytes # 2.6 K/mcL (0.6-4.6); Monocytes # 0.9 K/mcL (0.0-1.3); Neutrophils # 18.4 K/mcL (1.6-8.9)
[2020-02-26 05:14] LABS: Anisocytosis 1+ (Not Present); Microcytosis Present (Not Present); Platelet Estimate Normal (Normal); Reactive Lymphocytes Present (Not Present); Toxic Granulation Present (Not Present)
[2020-02-26 05:15] LABS: Hypochromasia Present (Not Present)
[2020-02-26] MEDS ORDERED: 0.9 % Sodium Chloride 250 ML IVC SCH (05:15)
[2020-02-26] MEDS: Budesonide/Formoterol 160/4.5 1 PUFF INH IH SCH ×2 (07:45→19:42)
[2020-02-26] MEDS: FentaNYL (PF) 1,000 MCG/100 ML IV.SOLN IVC SCH (08:40)
[2020-02-26] MEDS: Chlorhexidine Rinse 15 ML MOUTHWASH MM SCH ×2 (10:27→20:18)
[2020-02-26] MEDS: Pantoprazole 40 MG VIAL IVP SCH (10:27)
[2020-02-26] MEDS ORDERED: Piperacillin/Tazobactam 3.375 GM in 0.9 % Sodium Chloride Mini Bag 100 ML IVPB SCH (14:00)
[2020-02-26 20:22] LABS: Hematocrit 28.3 % (37.5-50.1)
[2020-02-26 20:23] LABS: Hemoglobin 8.4 g/dL (12.9-16.9)
[2020-02-27] MEDS: Piperacillin/Tazobactam 3.375 GM in 0.9 % Sodium Chloride Mini Bag 100 ML IVPB SCH ×2 (00:21→09:51)
[2020-02-27] MEDS: Artificial Tears SOLN 15 ML BOTTLE BOTH EYES SCH ×4 (00:24→13:29)
[2020-02-27 03:55] LABS: Hematocrit 27.9 % (37.5-50.1); Hemoglobin 8.4 g/dL (12.9-16.9); Mean Corpuscular HGB Conc 30.1 g/dL (31.6-35.5); Mean Corpuscular Hemoglobin 28.3 pg (28.0-33.3); Mean Corpuscular Volume 93.9 fL (83.0-100.0); Mean Platelet Volume 9.6 fL (9.4-12.4); Platelet Count 204 K/mcL (140-400); Red Blood Count 2.97 M/mcL (4.19-5.50); Red Cell Distribution Width 16.4 % (11.5-14.5); White Blood Count 12.6 K/mcL (4.3-11.1)
[2020-02-27 04:11] LABS: Calcium 11.6 mg/dL (8.6-10.3); Potassium 3.7 mEq/L (3.5-5.1)
[2020-02-27 04:25] LABS: Anisocytosis 1+ (Not Present); Hypochromasia Present (Not Present); Lymphocytes # 1.3 K/mcL (0.6-4.6); Microcytosis Present (Not Present); Monocytes # 0.5 K/mcL (0.0-1.3); Neutrophils # 10.8 K/mcL (1.6-8.9); Platelet Estimate Normal (Normal); Reactive Lymphocytes Present (Not Present); Toxic Granulation Present (Not Present)
[2020-02-27] MEDS: *HR* Heparin 5,000 UNIT/ML VIAL SQ SCH (05:14)
[2020-02-27 05:18] LABS: ABG Base Excess 1 mEq/L (-2 to 3); ABG HCO3 27 mEq/L (21-27); ABG Oxygen Saturation 99 % (95-98); ABG PCO2 48 mmHg (35-45); ABG PH 7.36 pH Units (7.32-7.45); ABG PO2 138 mmHg (85-104); ABG TCO2 28 mEq/L (20-26); Blood Gas Modality ASSIST CONTROL; Blood Gas VT 450 cc
[2020-02-27] MEDS: Budesonide/Formoterol 160/4.5 1 PUFF INH IH SCH ×2 (07:35→21:06)
[2020-02-27] MEDS: Pantoprazole 40 MG VIAL IVP SCH (09:50)
[2020-02-27] MEDS: Chlorhexidine Rinse 15 ML MOUTHWASH MM SCH ×2 (09:50→20:52)
[2020-02-27] MEDS ORDERED: 0.9 % Sodium Chloride 250 ML IVC PRN (11:53)
[2020-02-27] MEDS ORDERED: *HR* Heparin 10,000 UNIT/10 ML VIAL IV PRN (11:53)
[2020-02-27] MEDS ORDERED: Naloxone 0.4 MG/ML INJ IVP PRN (19:12)
[2020-02-27] MEDS ORDERED: 0.9 % Sodium Chloride 1,000 ML PRIME SCH (19:12)
[2020-02-27] MEDS ORDERED: Acetaminophen 325 MG TABLET PO PRN (19:12)
[2020-02-27] MEDS ORDERED: Artificial Tears SOLN 15 ML BOTTLE BOTH EYES PRN (19:12)
[2020-02-27] MEDS: Valproic Acid Oral Soln 250 MG/5 ML UDC GTUBE SCH (20:52)
[2020-02-27] MEDS: Melatonin 3 MG TABLET GTUBE SCH (20:52)
[2020-02-27] MEDS: ALPRAZolam 0.5 MG TABLET GTUBE PRN (20:52)
[2020-02-28] MEDS: Valproic Acid Oral Soln 250 MG/5 ML UDC GTUBE SCH ×3 (03:16→21:28)
[2020-02-28 04:30] LABS: Hematocrit 29.8 % (37.5-50.1); Mean Corpuscular HGB Conc 30.2 g/dL (31.6-35.5); Mean Corpuscular Volume 92.5 fL (83.0-100.0); Mean Platelet Volume 9.7 fL (9.4-12.4); Platelet Count 218 K/mcL (140-400); Red Blood Count 3.22 M/mcL (4.19-5.50); White Blood Count 14.5 K/mcL (4.3-11.1)
[2020-02-28 04:48] LABS: Calcium 10.8 mg/dL (8.6-10.3); Magnesium 1.9 mg/dL (1.6-2.6); Potassium 4.1 mEq/L (3.5-5.1)
[2020-02-28 04:57] LABS: Large Platelets Present (Not Present); Lymphocytes # 1.2 K/mcL (0.6-4.6); Monocytes # 1.7 K/mcL (0.0-1.3); Neutrophils # 10.7 K/mcL (1.6-8.9); Platelet Estimate Normal (Normal)
[2020-02-28] MEDS: *HR* Heparin 5,000 UNIT/ML VIAL SQ SCH ×2 (05:43→16:34)
[2020-02-28] MEDS ORDERED: Tigecycline 50 MG in 0.9 % Sodium Chloride Mini Bag 100 ML IVPB SCH (06:00)
[2020-02-28] MEDS: Budesonide/Formoterol 160/4.5 1 PUFF INH IH SCH ×2 (08:07→19:45)
[2020-02-28] MEDS: Pantoprazole 40 MG VIAL IVP SCH (08:10)
[2020-02-28] MEDS: Chlorhexidine Rinse 15 ML MOUTHWASH MM SCH ×2 (08:10→21:28)
[2020-02-28] MEDS: Tigecycline 50 MG in 0.9 % Sodium Chloride Mini Bag 100 ML IVPB SCH ×2 (08:10→16:35)
[2020-02-28] MEDS: Renal Vitamin 1 CAP CAPSULE PO SCH (08:14)
[2020-02-28] MEDS: Piperacillin/Tazobactam 3.375 GM in 0.9 % Sodium Chloride Mini Bag 100 ML IVPB SCH ×2 (10:16→21:29)
[2020-02-28] MEDS ORDERED: Piperacillin/Tazobactam 3.375 GM in 0.9 % Sodium Chloride Mini Bag 100 ML IVPB SCH (20:00)
[2020-02-28] MEDS: Melatonin 3 MG TABLET GTUBE SCH (21:28)
[2020-02-28] MEDS: ALPRAZolam 0.5 MG TABLET GTUBE PRN (21:31)
[2020-02-29] MEDS: Valproic Acid Oral Soln 250 MG/5 ML UDC GTUBE SCH ×3 (01:55→18:12)
[2020-02-29] MEDS: HYDROcodone/Acet 5-217 mg/10mL 10 ML UDC PO PRN (01:56)
[2020-02-29] MEDS: Tigecycline 50 MG in 0.9 % Sodium Chloride Mini Bag 100 ML IVPB SCH ×2 (04:22→17:45)
[2020-02-29] MEDS: *HR* Heparin 5,000 UNIT/ML VIAL SQ SCH ×2 (04:22→17:30)
[2020-02-29] MEDS: Chlorhexidine Rinse 15 ML MOUTHWASH MM SCH ×2 (09:59→22:46)
[2020-02-29] MEDS: Renal Vitamin 1 CAP CAPSULE PO SCH (09:59)
[2020-02-29] MEDS: Pantoprazole 40 MG VIAL IVP SCH (10:00)
[2020-02-29] MEDS: Piperacillin/Tazobactam 3.375 GM in 0.9 % Sodium Chloride Mini Bag 100 ML IVPB SCH ×2 (10:00→22:46)
[2020-02-29] MEDS: Budesonide/Formoterol 160/4.5 1 PUFF INH IH SCH ×2 (10:37→20:06)
[2020-02-29 14:33] LABS: Hematocrit 33.9 % (37.5-50.1); Hemoglobin 9.9 g/dL (12.9-16.9); Mean Corpuscular HGB Conc 29.2 g/dL (31.6-35.5); Mean Corpuscular Hemoglobin 27.6 pg (28.0-33.3); Mean Corpuscular Volume 94.4 fL (83.0-100.0); Mean Platelet Volume 9.8 fL (9.4-12.4); Platelet Count 289 K/mcL (140-400); Red Blood Count 3.59 M/mcL (4.19-5.50); Red Cell Distribution Width 16.1 % (11.5-14.5)
[2020-02-29 15:04] LABS: Magnesium 2.2 mg/dL (1.6-2.6); Potassium 5.4 mEq/L (3.5-5.1)
[2020-02-29] MEDS ORDERED: Lidocaine -MPF 2% 2 ML VIAL ONE (16:05)
[2020-02-29 16:25] LABS: Monocytes # 0.9 K/mcL (0.0-1.3); Neutrophils # 17.9 K/mcL (1.6-8.9); Platelet Estimate Normal (Normal); Toxic Granulation Present (Not Present)
[2020-02-29 16:26] LABS: Anisocytosis 1+ (Not Present)
[2020-02-29] MEDS: Melatonin 3 MG TABLET GTUBE SCH (22:45)
[2020-03-01 02:55] LABS: Hematocrit 28.7 % (37.5-50.1); Hemoglobin 8.6 g/dL (12.9-16.9); Mean Corpuscular Hemoglobin 27.6 pg (28.0-33.3); Mean Platelet Volume 9.4 fL (9.4-12.4); Platelet Count 281 K/mcL (140-400); Red Blood Count 3.12 M/mcL (4.19-5.50); Red Cell Distribution Width 16.3 % (11.5-14.5); White Blood Count 21.8 K/mcL (4.3-11.1)
[2020-03-01 03:10] LABS: Calcium 11.4 mg/dL (8.6-10.3); Potassium 5.5 mEq/L (3.5-5.1)
[2020-03-01] MEDS: Tigecycline 50 MG in 0.9 % Sodium Chloride Mini Bag 100 ML IVPB SCH ×2 (05:45→22:54)
[2020-03-01] MEDS: *HR* Heparin 5,000 UNIT/ML VIAL SQ SCH ×2 (05:52→17:01)
[2020-03-01] MEDS: Valproic Acid Oral Soln 250 MG/5 ML UDC GTUBE SCH ×3 (05:52→22:52)
[2020-03-01] MEDS ORDERED: *HR* FentaNYL (PF) 100 MCG/2 ML VIAL IVP ONE (06:48)
[2020-03-01] MEDS ORDERED: Ipratropium/Albuterol Neb 3 ML IH ONE (06:48)
[2020-03-01] MEDS ORDERED: *HR* EPINEPHrine 1 MG/10 ML SYRINGE INTRATRACH PRN (06:48)
[2020-03-01] MEDS ORDERED: *HR* Midazolam HCl 5 MG/5 ML VIAL IVP ONE (06:48)
[2020-03-01] MEDS ORDERED: 0.9 % Sodium Chloride 1,000 ML IVC SCH (07:00)
[2020-03-01] MEDS ORDERED: Lidocaine Viscous Oral Soln 15 ML SOLUTION ONE (08:10)
[2020-03-01] MEDS ORDERED: Lidocaine Viscous Oral Soln 15 ML SOLUTION MM ONE (08:10)
[2020-03-01] MEDS ORDERED: 0.9 % Sodium Chloride 250 ML IVC PRN (08:52)
[2020-03-01] MEDS ORDERED: *HR* Heparin 10,000 UNIT/10 ML VIAL IV PRN (08:52)
[2020-03-01] MEDS: Renal Vitamin 1 CAP CAPSULE PO SCH (08:56)
[2020-03-01] MEDS: Pantoprazole 40 MG VIAL IVP SCH (08:56)
[2020-03-01] MEDS: Piperacillin/Tazobactam 3.375 GM in 0.9 % Sodium Chloride Mini Bag 100 ML IVPB SCH ×2 (08:57→22:52)
[2020-03-01] MEDS: Chlorhexidine Rinse 15 ML MOUTHWASH MM SCH ×2 (09:01→22:52)
[2020-03-01] MEDS: Budesonide/Formoterol 160/4.5 1 PUFF INH IH SCH ×2 (10:35→21:11)
[2020-03-01] MEDS: Melatonin 3 MG TABLET GTUBE SCH (22:51)
[2020-03-01] MEDS ORDERED: *HR* Dextrose 50 % in Water (Vial) 50 ML VIAL ONE (23:25)
[2020-03-02] MEDS: Valproic Acid Oral Soln 250 MG/5 ML UDC GTUBE SCH ×3 (05:10→22:51)
[2020-03-02] MEDS: *HR* Heparin 5,000 UNIT/ML VIAL SQ SCH ×2 (05:10→17:30)
[2020-03-02] MEDS: Budesonide/Formoterol 160/4.5 1 PUFF INH IH SCH ×2 (08:14→19:55)
[2020-03-02] MEDS: Chlorhexidine Rinse 15 ML MOUTHWASH MM SCH ×2 (09:27→22:51)
[2020-03-02] MEDS: Zinc Sulfate 220 MG CAPSULE GTUBE SCH (09:28)
[2020-03-02] MEDS: Piperacillin/Tazobactam 3.375 GM in 0.9 % Sodium Chloride Mini Bag 100 ML IVPB SCH ×2 (09:28→22:50)
[2020-03-02] MEDS: Renal Vitamin 1 CAP CAPSULE PO SCH (09:28)
[2020-03-02 16:52] LABS: Hematocrit 29.6 % (37.5-50.1); Hemoglobin 8.9 g/dL (12.9-16.9); Mean Corpuscular HGB Conc 30.1 g/dL (31.6-35.5); Mean Corpuscular Hemoglobin 27.9 pg (28.0-33.3); Mean Corpuscular Volume 92.8 fL (83.0-100.0); Mean Platelet Volume 9.5 fL (9.4-12.4); Platelet Count 288 K/mcL (140-400); Red Blood Count 3.19 M/mcL (4.19-5.50); Red Cell Distribution Width 16.3 % (11.5-14.5); White Blood Count 21.9 K/mcL (4.3-11.1)
[2020-03-02] MEDS: Tigecycline 50 MG in 0.9 % Sodium Chloride Mini Bag 100 ML IVPB SCH ×3 (17:29→20:21)
[2020-03-02] MEDS ORDERED: 0.9 % Sodium Chloride 250 ML IVC PRN (17:36)
[2020-03-02 17:47] LABS: Calcium 10.8 mg/dL (8.6-10.3); Magnesium 2.1 mg/dL (1.6-2.6); Phosphorous 6.2 mg/dL (2.7-4.5); Potassium 4.3 mEq/L (3.5-5.1)
[2020-03-02] MEDS: Melatonin 3 MG TABLET GTUBE SCH (22:51)
[2020-03-03] MEDS ORDERED: *HR* Heparin 10,000 UNIT/10 ML VIAL IV PRN (00:01)
[2020-03-03 06:08] LABS: Hematocrit 28.7 % (37.5-50.1); Hemoglobin 8.8 g/dL (12.9-16.9); Mean Corpuscular HGB Conc 30.7 g/dL (31.6-35.5); Mean Corpuscular Hemoglobin 28.7 pg (28.0-33.3); Mean Corpuscular Volume 93.5 fL (83.0-100.0); Mean Platelet Volume 9.9 fL (9.4-12.4); Platelet Count 238 K/mcL (140-400); Red Blood Count 3.07 M/mcL (4.19-5.50); Red Cell Distribution Width 16.3 % (11.5-14.5); White Blood Count 16.3 K/mcL (4.3-11.1)
[2020-03-03 06:21] LABS: Calcium 11.4 mg/dL (8.6-10.3); Potassium 4.4 mEq/L (3.5-5.1)
[2020-03-03] MEDS: *HR* Heparin 5,000 UNIT/ML VIAL SQ SCH ×2 (06:25→16:17)
[2020-03-03] MEDS: Valproic Acid Oral Soln 250 MG/5 ML UDC GTUBE SCH ×3 (06:25→20:38)
[2020-03-03] MEDS: Tigecycline 50 MG in 0.9 % Sodium Chloride Mini Bag 100 ML IVPB SCH ×2 (06:26→16:18)
[2020-03-03] MEDS: Budesonide/Formoterol 160/4.5 1 PUFF INH IH SCH ×2 (07:43→19:53)
[2020-03-03] MEDS: Zinc Sulfate 220 MG CAPSULE GTUBE SCH (08:19)
[2020-03-03] MEDS: Chlorhexidine Rinse 15 ML MOUTHWASH MM SCH ×2 (08:20→20:38)
[2020-03-03] MEDS: Renal Vitamin 1 CAP CAPSULE PO SCH (08:20)
[2020-03-03] MEDS: Piperacillin/Tazobactam 3.375 GM in 0.9 % Sodium Chloride Mini Bag 100 ML IVPB SCH ×2 (08:21→21:05)
[2020-03-03] MEDS ORDERED: Heparin 1,000 UNITS/500 mL 500 ML ONE (12:34)
[2020-03-03] MEDS: Melatonin 3 MG TABLET GTUBE SCH (20:39)
[2020-03-03] MEDS: Ipratropium/Albuterol Neb 3 ML IH SCH (22:40)
[2020-03-04] MEDS ORDERED: Ipratropium/Albuterol Neb 3 ML IH SCH
[2020-03-04] MEDS: Ipratropium/Albuterol Neb 3 ML IH SCH ×7 (00:01→23:47)
[2020-03-04] MEDS: HYDROcodone/Acet 5-217 mg/10mL 10 ML UDC PO PRN (05:00)
[2020-03-04] MEDS: *HR* Heparin 5,000 UNIT/ML VIAL SQ SCH ×2 (05:00→17:13)
[2020-03-04] MEDS: Tigecycline 50 MG in 0.9 % Sodium Chloride Mini Bag 100 ML IVPB SCH ×2 (05:40→20:01)
[2020-03-04 07:38] LABS: Basophils # 0.1 K/mcL (0.0-0.2); Basophils % 0.6 %; Eosinophils # 0.2 K/mcL (0.0-0.6); Eosinophils % 0.8 %; Hematocrit 30.1 % (37.5-50.1); Hemoglobin 9.2 g/dL (12.9-16.9); Immature Granulocytes % 6.9 % (0-4); Lymphocytes # 2.5 K/mcL (0.6-4.6); Mean Corpuscular HGB Conc 30.6 g/dL (31.6-35.5); Mean Corpuscular Hemoglobin 28.4 pg (28.0-33.3); Mean Corpuscular Volume 92.9 fL (83.0-100.0); Mean Platelet Volume 9.9 fL (9.4-12.4); Monocytes # 1.5 K/mcL (0.0-1.3); Monocytes % 7.3 %; Neutrophils # 15.1 K/mcL (1.6-8.9); Platelet Count 297 K/mcL (140-400); Red Blood Count 3.24 M/mcL (4.19-5.50); Red Cell Distribution Width 16.5 % (11.5-14.5); Segmented Neutrophils % 72.4 %; White Blood Count 20.9 K/mcL (4.3-11.1)
[2020-03-04 08:05] LABS: Magnesium 2.1 mg/dL (1.6-2.6); Potassium 4.2 mEq/L (3.5-5.1)
[2020-03-04] MEDS: Budesonide/Formoterol 160/4.5 1 PUFF INH IH SCH ×2 (08:10→20:01)
[2020-03-04] MEDS: Chlorhexidine Rinse 15 ML MOUTHWASH MM SCH ×3 (08:38→20:40)
[2020-03-04] MEDS: Zinc Sulfate 220 MG CAPSULE GTUBE SCH (08:39)
[2020-03-04] MEDS: Renal Vitamin 1 CAP CAPSULE PO SCH (08:39)
[2020-03-04] MEDS: Piperacillin/Tazobactam 3.375 GM in 0.9 % Sodium Chloride Mini Bag 100 ML IVPB SCH ×2 (08:43→19:57)
[2020-03-04 09:21] LABS: Anisocytosis 1+ (Not Present); Platelet Estimate Normal (Normal); Toxic Granulation Present (Not Present)
[2020-03-04] MEDS: Valproic Acid Oral Soln 250 MG/5 ML UDC GTUBE SCH ×3 (13:00→20:03)
[2020-03-04] MEDS: Melatonin 3 MG TABLET GTUBE SCH (20:02)
[2020-03-05] MEDS: Valproic Acid Oral Soln 250 MG/5 ML UDC GTUBE SCH ×3 (02:26→22:07)
[2020-03-05] MEDS: Ipratropium/Albuterol Neb 3 ML IH SCH ×6 (03:42→23:42)
[2020-03-05] MEDS: *HR* Heparin 5,000 UNIT/ML VIAL SQ SCH ×2 (05:45→17:28)
[2020-03-05] MEDS: Tigecycline 50 MG in 0.9 % Sodium Chloride Mini Bag 100 ML IVPB SCH ×2 (05:48→17:30)
[2020-03-05] MEDS: Budesonide/Formoterol 160/4.5 1 PUFF INH IH SCH ×2 (08:26→20:15)
[2020-03-05] MEDS: Renal Vitamin 1 CAP CAPSULE PO SCH (08:49)
[2020-03-05] MEDS: Chlorhexidine Rinse 15 ML MOUTHWASH MM SCH ×2 (08:49→22:08)
[2020-03-05] MEDS: Piperacillin/Tazobactam 3.375 GM in 0.9 % Sodium Chloride Mini Bag 100 ML IVPB SCH ×2 (08:49→22:07)
[2020-03-05] MEDS: Zinc Sulfate 220 MG CAPSULE GTUBE SCH (08:49)
[2020-03-05 11:05] LABS: Basophils # 0.1 K/mcL (0.0-0.2); Basophils % 0.4 %; Eosinophils # 0.2 K/mcL (0.0-0.6); Hematocrit 27.5 % (37.5-50.1); Hemoglobin 8.4 g/dL (12.9-16.9); Immature Granulocytes % 4.2 % (0-4); Lymphocytes % 8.9 %; Mean Corpuscular HGB Conc 30.5 g/dL (31.6-35.5); Mean Corpuscular Volume 91.7 fL (83.0-100.0); Mean Platelet Volume 9.9 fL (9.4-12.4); Monocytes # 1.3 K/mcL (0.0-1.3); Monocytes % 5.5 %; Neutrophils # 18.2 K/mcL (1.6-8.9); Platelet Count 286 K/mcL (140-400); Red Cell Distribution Width 16.7 % (11.5-14.5); White Blood Count 22.8 K/mcL (4.3-11.1)
[2020-03-05 11:28] LABS: Calcium 11.3 mg/dL (8.6-10.3); Magnesium 2.3 mg/dL (1.6-2.6); Phosphorous 6.3 mg/dL (2.7-4.5); Potassium 4.6 mEq/L (3.5-5.1)
[2020-03-05] MEDS: Melatonin 3 MG TABLET GTUBE SCH (22:07)
[2020-03-06] MEDS: Valproic Acid Oral Soln 250 MG/5 ML UDC GTUBE SCH ×3 (02:31→18:29)
[2020-03-06] MEDS: Ipratropium/Albuterol Neb 3 ML IH SCH ×5 (03:50→20:32)
[2020-03-06] MEDS: Tigecycline 50 MG in 0.9 % Sodium Chloride Mini Bag 100 ML IVPB SCH ×2 (06:01→17:40)
[2020-03-06] MEDS: *HR* Heparin 5,000 UNIT/ML VIAL SQ SCH ×2 (06:02→17:41)
[2020-03-06] MEDS ORDERED: 0.9 % Sodium Chloride 250 ML IVC PRN (06:58)
[2020-03-06] MEDS: Budesonide/Formoterol 160/4.5 1 PUFF INH IH SCH ×2 (07:50→20:32)
[2020-03-06] MEDS: Renal Vitamin 1 CAP CAPSULE PO SCH (08:22)
[2020-03-06] MEDS: Chlorhexidine Rinse 15 ML MOUTHWASH MM SCH ×2 (08:23→21:10)
[2020-03-06] MEDS: Zinc Sulfate 220 MG CAPSULE GTUBE SCH (08:24)
[2020-03-06] MEDS ORDERED: *HR* Heparin 10,000 UNIT/10 ML VIAL IV PRN (11:13)
[2020-03-06] MEDS ORDERED: Piperacillin/Tazobactam 3.375 GM in 0.9 % Sodium Chloride Mini Bag 100 ML IVPB SCH (14:00)
[2020-03-06 15:38] LABS: Calcium 10.4 mg/dL (8.6-10.3); Magnesium 2.1 mg/dL (1.6-2.6); Phosphorous 3.9 mg/dL (2.7-4.5); Potassium 4.3 mEq/L (3.5-5.1)
[2020-03-06] MEDS: Cefepime HCl 2,000 MG in Water for inj. (sterile) 20 ML IVP SCH (17:40)
[2020-03-06 18:58] LABS: Hematocrit 31.6 % (37.5-50.1)
[2020-03-06 18:59] LABS: Hemoglobin 9.7 g/dL (12.9-16.9); Mean Corpuscular HGB Conc 30.7 g/dL (31.6-35.5); Mean Corpuscular Hemoglobin 28.8 pg (28.0-33.3); Mean Corpuscular Volume 93.8 fL (83.0-100.0); Mean Platelet Volume 9.8 fL (9.4-12.4); Platelet Count 272 K/mcL (140-400); Red Blood Count 3.37 M/mcL (4.19-5.50); Red Cell Distribution Width 16.7 % (11.5-14.5); White Blood Count 25.3 K/mcL (4.3-11.1)
[2020-03-06 19:23] LABS: Lymphocytes # 1.5 K/mcL (0.6-4.6); Monocytes # 1.5 K/mcL (0.0-1.3); Neutrophils # 20.8 K/mcL (1.6-8.9); Platelet Estimate Normal (Normal); Toxic Granulation Present (Not Present)
[2020-03-06] MEDS: Melatonin 3 MG TABLET GTUBE SCH (21:10)
[2020-03-07] MEDS: Ipratropium/Albuterol Neb 3 ML IH SCH ×6 (00:05→20:13)
[2020-03-07] MEDS: Valproic Acid Oral Soln 250 MG/5 ML UDC GTUBE SCH ×3 (03:32→21:31)
[2020-03-07] MEDS: Tigecycline 50 MG in 0.9 % Sodium Chloride Mini Bag 100 ML IVPB SCH ×2 (05:37→18:20)
[2020-03-07] MEDS: *HR* Heparin 5,000 UNIT/ML VIAL SQ SCH ×2 (05:37→18:20)
[2020-03-07] MEDS: Budesonide/Formoterol 160/4.5 1 PUFF INH IH SCH ×2 (07:56→20:13)
[2020-03-07] MEDS: Renal Vitamin 1 CAP CAPSULE PO SCH (09:12)
[2020-03-07] MEDS: Chlorhexidine Rinse 15 ML MOUTHWASH MM SCH ×2 (09:12→21:31)
[2020-03-07] MEDS: Zinc Sulfate 220 MG CAPSULE GTUBE SCH (09:12)
[2020-03-07] MEDS: HYDROcodone/Acet 5-217 mg/10mL 10 ML UDC PO PRN (09:13)
[2020-03-07] MEDS ORDERED: Isovue-370 500 ML BOTTLE IVP ONE (12:31)
[2020-03-07 15:29] LABS: Calcium 10.9 mg/dL (8.6-10.3); Magnesium 2.3 mg/dL (1.6-2.6); Phosphorous 6.1 mg/dL (2.7-4.5); Potassium 3.9 mEq/L (3.5-5.1)
[2020-03-07 15:42] LABS: Basophils # 0.1 K/mcL (0.0-0.2); Basophils % 0.3 %; Eosinophils # 0.2 K/mcL (0.0-0.6); Eosinophils % 0.7 %; Hematocrit 29.7 % (37.5-50.1); Hemoglobin 8.9 g/dL (12.9-16.9); Immature Granulocytes % 2.3 % (0-4); Lymphocytes # 2.1 K/mcL (0.6-4.6); Lymphocytes % 10.2 %; Mean Corpuscular Hemoglobin 28.4 pg (28.0-33.3); Mean Corpuscular Volume 94.9 fL (83.0-100.0); Mean Platelet Volume 10.4 fL (9.4-12.4); Neutrophils # 17.1 K/mcL (1.6-8.9); Platelet Count 298 K/mcL (140-400); Red Blood Count 3.13 M/mcL (4.19-5.50); Red Cell Distribution Width 16.8 % (11.5-14.5); Segmented Neutrophils % 81.5 %
[2020-03-07] MEDS: Melatonin 3 MG TABLET GTUBE SCH (21:31)
[2020-03-07] MEDS: ALPRAZolam 0.5 MG TABLET GTUBE PRN (21:31)
[2020-03-08] MEDS: Ipratropium/Albuterol Neb 3 ML IH SCH ×7 (00:17→23:40)
[2020-03-08] MEDS: Valproic Acid Oral Soln 250 MG/5 ML UDC GTUBE SCH ×3 (05:27→20:09)
[2020-03-08] MEDS: *HR* Heparin 5,000 UNIT/ML VIAL SQ SCH ×2 (05:27→17:19)
[2020-03-08] MEDS: Tigecycline 50 MG in 0.9 % Sodium Chloride Mini Bag 100 ML IVPB SCH ×2 (05:28→17:20)
[2020-03-08] MEDS ORDERED: 0.9 % Sodium Chloride 250 ML IVC PRN (07:32)
[2020-03-08] MEDS: Budesonide/Formoterol 160/4.5 1 PUFF INH IH SCH ×2 (08:01→20:12)
[2020-03-08 11:29] LABS: BUN/Creatinine Ratio 31 (6-26); Blood Urea Nitrogen 30 mg/dL (8-23); Calcium 9.1 mg/dL (8.6-10.3); Carbon Dioxide 35 mEq/L (23-29); Chloride 95 mEq/L (98-107); Glucose 124 mg/dL (70-105); Magnesium 1.7 mg/dL (1.6-2.6); Osmolality,Calculated 292 (280-300); Phosphorous 1.8 mg/dL (2.7-4.5); Potassium 3.1 mEq/L (3.5-5.1); Sodium 137 mEq/L (136-145); eGFR For African Americans > 60 (> 60); eGFR For Non-African Americans > 60 (> 60)
[2020-03-08] MEDS: Renal Vitamin 1 CAP CAPSULE PO SCH (12:32)
[2020-03-08] MEDS: Chlorhexidine Rinse 15 ML MOUTHWASH MM SCH ×2 (12:32→20:09)
[2020-03-08] MEDS: Zinc Sulfate 220 MG CAPSULE GTUBE SCH (12:33)
[2020-03-08 13:44] LABS: Eosinophils % 0.5 %
[2020-03-08 13:45] LABS: Basophils # 0.2 K/mcL (0.0-0.2); Basophils % 0.6 %; Eosinophils # 0.1 K/mcL (0.0-0.6); Hemoglobin 10.1 g/dL (12.9-16.9); Immature Granulocytes % 3.4 % (0-4); Lymphocytes # 1.4 K/mcL (0.6-4.6); Lymphocytes % 5.2 %; Mean Corpuscular HGB Conc 30.6 g/dL (31.6-35.5); Mean Corpuscular Hemoglobin 27.8 pg (28.0-33.3); Mean Corpuscular Volume 90.9 fL (83.0-100.0); Mean Platelet Volume 10.1 fL (9.4-12.4); Monocytes # 1.6 K/mcL (0.0-1.3); Monocytes % 6.3 %; Neutrophils # 21.8 K/mcL (1.6-8.9); Platelet Count 374 K/mcL (140-400); Red Blood Count 3.63 M/mcL (4.19-5.50); Red Cell Distribution Width 16.7 % (11.5-14.5)
[2020-03-08 14:14] LABS: Platelet Estimate Normal (Normal)
[2020-03-08 14:15] LABS: Anisocytosis 1+ (Not Present); Microcytosis Present (Not Present); Toxic Granulation Present (Not Present)
[2020-03-08] MEDS: Cefepime HCl 2,000 MG in Water for inj. (sterile) 20 ML IVP SCH (17:16)
[2020-03-08] MEDS: ALPRAZolam 0.5 MG TABLET GTUBE PRN (17:19)
[2020-03-08] MEDS: HYDROcodone/Acet 5-217 mg/10mL 10 ML UDC PO PRN (20:09)
[2020-03-08] MEDS: Melatonin 3 MG TABLET GTUBE SCH (20:10)
[2020-03-09] MEDS: Valproic Acid Oral Soln 250 MG/5 ML UDC GTUBE SCH ×3 (03:49→18:26)
[2020-03-09] MEDS: Ipratropium/Albuterol Neb 3 ML IH SCH ×5 (04:08→20:32)
[2020-03-09] MEDS: *HR* Heparin 5,000 UNIT/ML VIAL SQ SCH ×2 (04:54→16:27)
[2020-03-09] MEDS: Tigecycline 50 MG in 0.9 % Sodium Chloride Mini Bag 100 ML IVPB SCH ×2 (04:55→18:26)
[2020-03-09] MEDS ORDERED: Heparin 1,000 UNITS/500 mL 500 ML ONE (07:31)
[2020-03-09] MEDS: Budesonide/Formoterol 160/4.5 1 PUFF INH IH SCH ×2 (08:33→20:33)
[2020-03-09 11:19] LABS: Basophils # 0.1 K/mcL (0.0-0.2); Basophils % 0.3 %; Eosinophils # 0.1 K/mcL (0.0-0.6); Eosinophils % 0.8 %; Hematocrit 29.5 % (37.5-50.1); Hemoglobin 8.8 g/dL (12.9-16.9); Immature Granulocytes % 1.8 % (0-4); Lymphocytes # 1.6 K/mcL (0.6-4.6); Lymphocytes % 9.6 %; Mean Corpuscular HGB Conc 29.8 g/dL (31.6-35.5); Mean Corpuscular Volume 93.9 fL (83.0-100.0); Mean Platelet Volume 9.9 fL (9.4-12.4); Monocytes # 1.1 K/mcL (0.0-1.3); Monocytes % 6.4 %; Neutrophils # 13.4 K/mcL (1.6-8.9); Platelet Count 263 K/mcL (140-400); Red Blood Count 3.14 M/mcL (4.19-5.50); Red Cell Distribution Width 16.6 % (11.5-14.5); Segmented Neutrophils % 81.1 %; White Blood Count 16.6 K/mcL (4.3-11.1)
[2020-03-09] MEDS: Renal Vitamin 1 CAP CAPSULE PO SCH (11:20)
[2020-03-09] MEDS: Chlorhexidine Rinse 15 ML MOUTHWASH MM SCH ×2 (11:20→19:46)
[2020-03-09] MEDS: Zinc Sulfate 220 MG CAPSULE GTUBE SCH (11:20)
[2020-03-09 11:49] LABS: Magnesium 2.1 mg/dL (1.6-2.6); Phosphorous 4.6 mg/dL (2.7-4.5)
[2020-03-09] MEDS: Melatonin 3 MG TABLET GTUBE SCH (19:47)
[2020-03-10] MEDS: Ipratropium/Albuterol Neb 3 ML IH SCH ×7 (00:13→23:56)
[2020-03-10] MEDS: Valproic Acid Oral Soln 250 MG/5 ML UDC GTUBE SCH ×3 (03:16→17:20)
[2020-03-10] MEDS: *HR* Heparin 5,000 UNIT/ML VIAL SQ SCH ×2 (05:21→17:20)
[2020-03-10] MEDS: Tigecycline 50 MG in 0.9 % Sodium Chloride Mini Bag 100 ML IVPB SCH ×2 (06:18→20:07)
[2020-03-10] MEDS ORDERED: 0.9 % Sodium Chloride 250 ML IVC PRN (06:55)
[2020-03-10] MEDS: Budesonide/Formoterol 160/4.5 1 PUFF INH IH SCH ×3 (07:18→20:17)
[2020-03-10] MEDS: Zinc Sulfate 220 MG CAPSULE GTUBE SCH (09:28)
[2020-03-10] MEDS: Renal Vitamin 1 CAP CAPSULE PO SCH (09:28)
[2020-03-10] MEDS: Chlorhexidine Rinse 15 ML MOUTHWASH MM SCH ×2 (09:28→20:08)
[2020-03-10 12:32] LABS: Basophils # 0.1 K/mcL (0.0-0.2); Basophils % 0.4 %; Eosinophils # 0.1 K/mcL (0.0-0.6); Eosinophils % 0.5 %; Hematocrit 30.7 % (37.5-50.1); Hemoglobin 9.5 g/dL (12.9-16.9); Immature Granulocytes % 1.3 % (0-4); Lymphocytes # 1.4 K/mcL (0.6-4.6); Lymphocytes % 7.7 %; Mean Corpuscular HGB Conc 30.9 g/dL (31.6-35.5); Mean Corpuscular Hemoglobin 29.1 pg (28.0-33.3); Mean Corpuscular Volume 93.9 fL (83.0-100.0); Mean Platelet Volume 9.7 fL (9.4-12.4); Monocytes # 1.2 K/mcL (0.0-1.3); Monocytes % 6.6 %; Neutrophils # 15.1 K/mcL (1.6-8.9); Platelet Count 315 K/mcL (140-400); Red Blood Count 3.27 M/mcL (4.19-5.50); Red Cell Distribution Width 16.7 % (11.5-14.5); Segmented Neutrophils % 83.5 %; White Blood Count 18.1 K/mcL (4.3-11.1)
[2020-03-10 12:47] LABS: BUN/Creatinine Ratio 22 (6-26); Blood Urea Nitrogen 30 mg/dL (8-23); Carbon Dioxide 30 mEq/L (23-29); Chloride 99 mEq/L (98-107); Glucose 127 mg/dL (70-105); Magnesium 1.8 mg/dL (1.6-2.6); Osmolality,Calculated 294 (280-300); Potassium 3.5 mEq/L (3.5-5.1); Sodium 138 mEq/L (136-145); eGFR For African Americans > 60 (> 60); eGFR For Non-African Americans 52 (> 60)
[2020-03-10] MEDS ORDERED: Heparin 1,000 UNITS/500 mL 500 ML ONE (14:14)
[2020-03-10] MEDS ORDERED: *HR* Heparin 5,000 UNIT/ML VIAL ONE (14:59)
[2020-03-10] MEDS ORDERED: Potassium Phosphate 44 MEQ in 0.9 % Sodium Chloride 250 ML IVPB ONE (16:30)
[2020-03-10] MEDS: Cefepime HCl 2,000 MG in Water for inj. (sterile) 20 ML IVP SCH (17:20)
[2020-03-10] MEDS: Melatonin 3 MG TABLET GTUBE SCH (20:08)
[2020-03-11] MEDS: Valproic Acid Oral Soln 250 MG/5 ML UDC GTUBE SCH ×2 (02:48→10:52)
[2020-03-11] MEDS: Ipratropium/Albuterol Neb 3 ML IH SCH ×4 (04:06→15:22)
[2020-03-11] MEDS: Tigecycline 50 MG in 0.9 % Sodium Chloride Mini Bag 100 ML IVPB SCH (05:44)
[2020-03-11] MEDS: *HR* Heparin 5,000 UNIT/ML VIAL SQ SCH (05:44)
[2020-03-11] MEDS: Budesonide/Formoterol 160/4.5 1 PUFF INH IH SCH (07:52)
[2020-03-11 08:35] LABS: Basophils # 0.1 K/mcL (0.0-0.2); Basophils % 0.3 %; Eosinophils # 0.1 K/mcL (0.0-0.6); Eosinophils % 0.3 %; Hemoglobin 9.6 g/dL (12.9-16.9); Immature Granulocytes % 0.7 % (0-4); Lymphocytes # 2.1 K/mcL (0.6-4.6); Lymphocytes % 9.2 %; Mean Corpuscular Hemoglobin 28.5 pg (28.0-33.3); Mean Platelet Volume 9.7 fL (9.4-12.4); Monocytes # 1.3 K/mcL (0.0-1.3); Monocytes % 5.9 %; Neutrophils # 18.9 K/mcL (1.6-8.9); Platelet Count 314 K/mcL (140-400); Red Blood Count 3.37 M/mcL (4.19-5.50); Red Cell Distribution Width 17.2 % (11.5-14.5); Segmented Neutrophils % 83.6 %; White Blood Count 22.6 K/mcL (4.3-11.1)
[2020-03-11 09:33] LABS: Magnesium 2.1 mg/dL (1.6-2.6); Phosphorous 6.1 mg/dL (2.7-4.5); Potassium 4.4 mEq/L (3.5-5.1)
[2020-03-11] MEDS: Renal Vitamin 1 CAP CAPSULE PO SCH (10:52)
[2020-03-11] MEDS: Chlorhexidine Rinse 15 ML MOUTHWASH MM SCH (10:52)
[2020-03-11] MEDS: Zinc Sulfate 220 MG CAPSULE GTUBE SCH (10:52)
[2020-03-11] MEDS ORDERED: Acetaminophen IV 1,000 MG/100 ML BAG IVPB ONE (13:34)
[2020-03-11 15:02] LABS: Adenovirus Not Detected (Not Detect); Bordetella Pertussis Not Detected (Not Detect); Chlamydophila pneumoniae Not Detected (Not Detect); Coronavirus 229E Not Detected (Not Detect); Coronavirus HKU1 Not Detected (Not Detect); Coronavirus NL63 Not Detected (Not Detect); Coronavirus OC43 Not Detected (Not Detect); Human Metapneumovirus Not Detected (Not Detect); Human Rhinovirus/Enterovirus Not Detected (Not Detect); Influenza A Subtype 2009 H1 Not Detected (Not Detect); Influenza B Not Detected (Not Detect); Mycoplasma pneumoniae Not Detected (Not Detect); Parainfluenza Virus 1 Not Detected (Not Detect); Parainfluenza Virus 2 Not Detected (Not Detect); Parainfluenza Virus 3 Not Detected (Not Detect); Parainfluenza Virus 4 Not Detected (Not Detect); Respiratory Syncytial Virus Not Detected (Not Detect); SARS-CoV-2 Not Detected (Not Detect)
[2020-03-11 15:30] VITALS: BP 127/81
== END 2020-03-11 17:35 | DRG 871 ==
LOC: ICNU → SUATTDRO 17:26 → 2NNU 02-27 15:10 → 2ANU 03-09 18:16
PROVIDERS: ADMIT Pediatrics; ATTEND Family Medicine